=== PATIENT | female | born 1980 | race Caucasian/White ===

== ENCOUNTER 2019-08-23 14:07 | Outpatient (CLI) | payer OTHER, SELFPAY ==
[2019-08-23 15:21] LABS: Thyroid Stimulating Hormone 0.893 uIU/mL (0.465-4.680)
[2019-08-23 15:48] LABS: Free T4 Free Thyroxine 0.89 ng/mL (0.78-2.19)
== END 2019-08-23 14:08 | disposition home or self-care (01) ==
PROVIDERS: PCP Family Medicine; Visit Provider Obstetrics & Gynecology Gynecology
DX: E03.9 Hypothyroidism, unspecified (principal)
CPT/HCPCS: 36415; 84439; 84443

== ENCOUNTER 2019-12-26 11:14 | Outpatient (CLI) | payer OTHER, SELFPAY ==
[2019-12-26 12:50] LABS: Vitamin D 25 Hydroxy 59.6 ng/mL
== END 2019-12-26 11:15 | disposition home or self-care (01) ==
LOC: ANHLAB 11:16
PROVIDERS: PCP Family Medicine; Visit Provider Nurse Practitioner
DX: E07.9 Disorder of thyroid, unspecified (principal)
CPT/HCPCS: 36415; 82306; 84439; 84443

== ENCOUNTER 2020-02-06 15:00 | Outpatient (CLI) | payer OTHER, SELFPAY ==
--- NOTE | ~2020-02-06 | MM_ITS ---
EXAMINATION: MM screening alfredo BI w christopher HISTORY: Screening TECHNIQUE: Craniocaudal and mediolateral oblique 3-D tomosynthesis images were obtained and synthetic 2-D images were generated. CAD analysis was submitted and interpreted. COMPARISON: No prior mammogram is available for comparison at this institution. BREAST PARENCHYMAL COMPOSITION: The breasts are heterogeneously dense, which may obscure small masses . FINDINGS: There are asymmetries centered in the upper inner quadrant of the left breast. There is no mammographic evidence for malignancy in the right breast. IMPRESSION: 1. Left breast asymmetries. 2. Additional mammographic views and possible breast ultrasound are recommended. BI-RADS Category 0: Incomplete: Needs additional imaging evaluation. Reviewed, dictated and finalized at location A. IMPRESSION: 1. Left breast asymmetries. 2. Additional mammographic views and possible breast ultrasound are recommended . BI-RADS Category 0: Incomplete: Needs additional imaging evaluation.
== END 2020-02-06 15:01 | disposition home or self-care (01) ==
PROVIDERS: PCP Family Medicine; Visit Provider Nurse Practitioner
DX: Z12.31 Encounter for screening mammogram for malignant neoplasm of breast (principal); R92.8 Other abnormal and inconclusive findings on diagnostic imaging of breast
CPT/HCPCS: 77063; 77067

== ENCOUNTER 2020-02-14 03:32 | Outpatient (CLI) | payer OTHER, SELFPAY ==
[2020-02-14 17:45] LABS: SARS-CoV-2 RNA PCR Negative
== END 2020-02-14 03:33 | disposition home or self-care (01) ==
LOC: ANHCOVIDDT 03:32
PROVIDERS: PCP Family Medicine; Visit Provider Obstetrics & Gynecology Gynecology
DX: Z01.812 Encounter for preprocedural laboratory examination (principal); Z20.828 Contact with and (suspected) exposure to other viral communicable diseases
CPT/HCPCS: 87635; C9803; U0003

== ENCOUNTER 2020-02-17 01:17 | Day surgery (SDC) | payer OTHER, SELFPAY ==
[2020-02-05 15:34] VITALS: BMI 27.3
--- NOTE | 2020-02-17 08:03 | PM.HPGS ---
History of Present Illness History of Present Illness Consent: Risks, benefits, and alternatives have been discussed and questions answered. Patient agrees to proceed with procedure. Chief complaint: Menorrhagia Narrative: Beronica Linn is a 40 year old female with menorrhagia. Cycles are long, erratic, and heavy. Patient is s/p endometial ablation and myomectomy 2018 with intial good response. Reviewed need for endometrial assessment with patient. Risks of infection, bleeding, perforation, and inability to enter cavity due to prior ablation discussed. Patient given cytotec prior to proceedure. Agrees to proceed. [facility]LY [facility] Past Medical History Medical History (Updated 02/17/20 @ 08:08 by Trixie Jacobson MD) Anemia MTHFR (methylene THF reductase) deficiency and homocystinuria (normal spontaneous vaginal delivery) x 2 Spontaneous x 4 Thyroid disease Surgical History Surgical History (Updated 02/17/20 @ 08:08 by Trixie Jacobson MD) H/O tubal ligation History of appendectomy History of foot surgery History of gynecologic surgery s/p hysteroscopy, myomectomy, and endometrial ablation 2018 Family History Family History Mother Lung cancer Grandparent Lung cancer Paternal Alcoholism Paternal Cerebrovascular accident Paternal and Maternal Hypertension Maternal Heart disease Maternal Father Diabetes mellitus Sibling Diabetes mellitus Hypertension Thyroid disease Social History Social History Smoking status: Never smoker Alcohol intake: current Substance use: never Substance use type: does not use Additional living arrangements comments: spouse, daughter, and son Additional occupation/education comments: [employer] Gender identity (if verbalized by the patient): Female Spiritual care concerns: No Agree to blood products: Yes Meds Home Medications and Allergies Home Medications Medication Instructions Recorded Confirmed Type cholecalciferol (vitamin D3) 50 50 mcg PO 2XW 04/09/19 02/05/20 History mcg (2,000 unit) capsule multivitamin 1 tablet PO DAILY 04/09/19 02/05/20 History omeprazole 20 mg capsule,delayed 20 mg PO DAILY 04/09/19 02/05/20 History release ibuprofen 600 mg PO Q6H PRN 02/05/20 02/05/20 History Allergies Allergy/AdvReac Type Severity Reaction Status Date / Time amoxicillin Allergy Unknown RASH Verified 02/05/20 15:34 Exam Const: General: healthy appearing and alert Orientation/consciousness: patient oriented x3 Resp: Effort & Inspection: normal respiratory effort Auscultation: clear to auscultation bilaterally Cardio: Rate: regular rate Rhythm: regular rhythm GI: GI Palp: Yes Soft to palpation, No Tenderness to palpation present (GI) and No Palpable mass present : External Female Exam: normal external appearance Speculum Exam - Vagina: normal appearance of the vagina and normal vaginal discharge Speculum Exam - Cervix: normal appearance of the cervix Bimanual exam- vagina & uterus: uterine size normal and consistency normal Bimanual Exam- Adnexa, other: normal adnexae and No adnexal tenderness Neuro: General: patient oriented x3 Assessment and Plan Assessment and plan (1) Menorrhagia: Code(s): N92.0 - Excessive and frequent menstruation with regular cycle Status: Acute Assessment and Plan: plan to proceed with hysteroscopy with D&C
--- NOTE | 2020-02-17 08:09 | WPDHPUPDATE1 ---
History and Physical Update Update Date/Time: 02/17/20 08:09 History and Physical has been reviewed, including an updated exam of the patient. There are NO changes in the patient's condition. Risks, benefits, and alternatives have been discussed and questions answered. Patient agrees to proceed with procedure.
--- NOTE | 2020-02-17 08:09 | WPDANESEPPF ---
Anes - Initial Pre Proc Eval Procedure: Operation Date: 02/17/20 10:45 Proposed Procedures p Hysteroscopy, Dilation And Curettage - Trixie Jacobson MD Date/Time: 02/17/20 08:09 Surgeon: Trixie Jacobson MD Pre Op Diagnosis: Menorrhagia Patient Data Age: 40 Gender: F Height: 1.73 m Weight: 81.65 kg Allergies Allergy/AdvReac Type Severity Reaction Status Date / Time amoxicillin Allergy Unknown RASH Verified 02/17/20 09:44 Home Medications Medication Instructions Recorded Confirmed Type cholecalciferol (vitamin D3) 50 50 mcg PO 2XW 04/09/19 02/17/20 History mcg (2,000 unit) capsule multivitamin 1 tablet PO DAILY 04/09/19 02/17/20 History omeprazole 20 mg capsule,delayed 20 mg PO DAILY 04/09/19 02/17/20 History release ibuprofen 600 mg PO Q6H PRN 02/05/20 02/17/20 History Patient hx anesthesia problems: none Family hx anesthesia problems: none PMFSH Past Medical History Medical History (Updated 02/17/20 @ 08:08 by Trixie Jacobson MD) Anemia MTHFR (methylene THF reductase) deficiency and homocystinuria (normal spontaneous vaginal delivery) x 2 Spontaneous x 4 Thyroid disease Surgical History Surgical History (Updated 02/17/20 @ 08:08 by Trixie Jacobson MD) H/O tubal ligation History of appendectomy History of foot surgery History of gynecologic surgery s/p hysteroscopy, myomectomy, and endometrial ablation 2017 Family History Family History Mother Lung cancer Grandparent Lung cancer Paternal Alcoholism Paternal Cerebrovascular accident Paternal and Maternal Hypertension Maternal Heart disease Maternal Father Diabetes mellitus Sibling Diabetes mellitus Hypertension Thyroid disease Social History Social History Smoking status: Never smoker Alcohol intake: current Substance use: never Substance use type: does not use Additional living arrangements comments: spouse, daughter, and son Additional occupation/education comments: [employer] Gender identity (if verbalized by the patient): Female Spiritual care concerns: No Agree to blood products: Yes Anes - Eval Final PreProcedure Day of Procedure 02/17/20 08:09 Patient weight: overweight Heart: regular rate and rhythm Lungs: clear to auscultation and normal air movement Airway: Mallampati scale class 1 Neurological: alert and oriented Last oral intake: >/= 8 hours ASA classification: II Emergent: no Anesthetic plan: proceed Anesthesia type and monitoring: general GIVS and standard monitoring Informed Consent: The patient's anesthetic plan and its attendant risks and benefits were discussed with the patient/family/POA. Questions were solicited and answers provided to the satisfaction of the patient/family/POA.
[2020-02-17 09:00] VITALS: BP 138/73; PULSE 84; RESP 16; TEMP 37.1; O2SAT 99
[2020-02-17] MEDS: ACETAMINOPHEN 500 MG TABLET 1000 MG PO (09:36)
[2020-02-17] MEDS: LACTATED RINGERS 1,000 ML 30 ML IV CONT (09:36)
[2020-02-17] MEDS: KETOROLAC 30 MG/ML VIAL (*BKC) IV PUSH (10:47)
--- NOTE | 2020-02-17 10:56 | SUR.OPER ---
150ml ns in, 150ml ns out. aware
--- NOTE | 2020-02-17 10:58 | P.OP_ITS ---
Procedure Note - Detailed Date of procedure: 02/17/20 Pre-op diagnosis: Menorrhagia Post-op diagnosis: same Procedure performed: D&C hysteroscopy Description of procedure: The patient is taken to the operating room and placed under anesthesia in the dorsal lithotomy position. She has prepped and draped in the usual sterile fashion. The bivalve speculum was placed in the vagina and the cervix grasped with the tenaculum. The cervix is injected with 1% lidocaine and dilated with Hegars. The diagnostic hysteroscope was placed with stated findings. The medium sharp curette is used to curette the endometrium until a good uterine cry was noted in all areas. All instruments are removed. The patient is awakened from anesthesia and taken to recovery in stable condition. Sponge, instrument, and needle counts are correct per the OR staff. Anesthesia: MAC and local Surgeon: Trixie Jacobson MD Estimated blood loss (mL): 5 Drains: No Packing: No Pathology: yes (endometrial curettings) Complications: No immediate complications Condition: stable Disposition: PACU Findings: uterus 8 cm; grossly scarred endometrium consistent with prior ablat ion; no lesions; normal appearing tubal ostia
[2020-02-17 11:02] VITALS: BP 130/69; PULSE 73; RESP 16; O2SAT 96
[2020-02-17 11:32] VITALS: BP 135/63; PULSE 67; RESP 16
[2020-02-17 12:02] VITALS: BP 134/66; PULSE 68; RESP 16
== END 2020-02-17 12:10 | disposition home or self-care (01) ==
PROVIDERS: PCP Family Medicine; Visit Provider Obstetrics & Gynecology Gynecology
PROC: 0U5B8ZZ Destruction of Endometrium, Via Natural or Artificial Opening Endoscopic (ICD-10-PCS; CPT 58563; principal; 2020-02-17 10:45)
DX: N92.0 Excessive and frequent menstruation with regular cycle (principal); E72.12 Methylenetetrahydrofolate reductase deficiency; E72.11 Homocystinuria
CPT/HCPCS: 58558; 88305; A9270; J1100; J1885; J2250; J2405; J2704; J3010; J7030; J7120

== ENCOUNTER 2020-04-30 11:46 | Outpatient (CLI) | payer OTHER, SELFPAY ==
--- NOTE | ~2020-04-30 | MMUS_ITS ---
EXAMINATION: MM diagnostic mammo unilat LT, US breast LT limited HISTORY: Left breast mass on screening mammogram TECHNIQUE: Additional 3-D tomosynthesis images of the left breast were performed and synthetic 2-D im ages were generated. CAD analysis was submitted and interpreted. High resolution limited left breast ultrasound was performed. COMPARISON: 02/06/2020 BREAST PARENCHYMAL COMPOSITION: The breasts are heterogeneously dense, which may obscure small masses . FINDINGS: MAMMOGRAPHIC FINDINGS: There is an approximately 2.8 cm irregular, spiculated, high density mass with associated architectur al distortion the upper inner quadrant of the left breast. ULTRASOUND: A 2.1 x 1.0 cm irregular, parallel, hypoechoic mass with spiculated margins, posterior acoustic shado wing, and internal vascularity is present at the 11:00 location corresponding to the mammographic fin ding in question. IMPRESSION: 1. Suspicious left breast mass. 2. Ultrasound-guided biopsy is recommended. BI-RADS category 5, highly suggestive of malignancy. Reviewed, dictated and finalized at location A. [facility] IMPRESSION: 1. Suspicious left breast mass. 2. Ultrasound-guided biopsy is recommended. BI-RADS category 5, highly suggestive of malignancy.
== END 2020-04-30 11:47 | disposition home or self-care (01) ==
PROVIDERS: PCP Family Medicine; Visit Provider Obstetrics & Gynecology Gynecology
DX: R92.8 Other abnormal and inconclusive findings on diagnostic imaging of breast (principal)
CPT/HCPCS: 76642; 77065

== ENCOUNTER 2021-02-25 09:31 | Outpatient (CLI) | payer OTHER, SELFPAY ==
[2021-02-25 11:11] LABS: Free T4 Free Thyroxine 0.99 ng/mL (0.78-2.19); Vitamin D 25 Hydroxy 61.2 ng/mL
[2021-02-25 11:24] LABS: Thyroid Stimulating Hormone 0.886 uIU/mL (0.465-4.680)
== END 2021-02-25 09:32 | disposition home or self-care (01) ==
LOC: ANHLAB 09:34
PROVIDERS: Visit Provider Nurse Practitioner
DX: E07.9 Disorder of thyroid, unspecified (principal)
CPT/HCPCS: 36415; 82306; 84439; 84443

== ENCOUNTER 2021-08-12 09:03 | Outpatient (CLI) | payer OTHER, SELFPAY ==
[2021-08-12 10:04] LABS: Free T4 Free Thyroxine 0.98 ng/mL (0.78-2.19)
[2021-08-12 10:14] LABS: Thyroid Stimulating Hormone 0.961 uIU/mL (0.465-4.680)
== END 2021-08-12 09:04 | disposition home or self-care (01) ==
LOC: ANHLAB 09:10
PROVIDERS: Visit Provider Internal Medicine Endocrinology, Diabetes & Metabolism
DX: E04.1 Nontoxic single thyroid nodule (principal)
CPT/HCPCS: 36415; 84439; 84443

== ENCOUNTER → 2021-08-27 08:52 | Outpatient (CLI) | payer OTHER, SELFPAY ==
--- NOTE | ~2021-08-27 | US_ITS ---
EXAMINATION: US thyroid DATE: 08/27/2021 09:13 INDICATION: Nontoxic single thyroid nodule. TECHNIQUE: Multiple ultrasound images of the thyroid were obtained. COMPARISON: Ultrasound 11/15/2018, 05/02/13 FINDINGS: The right thyroid lobe measures 6.9 x 1.4 x 2.9 cm. The left thyroid lobe measures 6.8 x 1.8 x 2.7 c m. In the right thyroid lobe, there is a 7 mm mixed cystic and solid, hypoechoic, btnee-vsfa-kjyi no dule with lobulated margin without echogenic foci (TI-RADS TR4). In the right thyroid lobe, there is a 5 mm solid, hypoechoic, hzziy-bedn-sfng nodule with lobulated margin without echogenic foci (TR4). In the right thyroid lobe, there is a 9 mm mixed cystic and solid, hypoechoic, owljz-nhth-dgnq nodule with irregular margin and punctate echogenic foci (TR5), stable from 11/15/18. There are multiple sma ll nodules in the thyroid. IMPRESSION: 1. Small thyroid nodules. Thyroid ultrasound is recommended in one year. Reviewed, dictated and finalized at location A.
== END ==
PROVIDERS: PCP Internal Medicine Endocrinology, Diabetes & Metabolism; Visit Provider Internal Medicine Endocrinology, Diabetes & Metabolism
DX: E04.2 Nontoxic multinodular goiter (principal)
CPT/HCPCS: 76536

== ENCOUNTER 2022-04-28 09:37 | Outpatient (CLI) | payer OTHER, SELFPAY ==
[2022-04-28 10:36] LABS: Free T4 Free Thyroxine 0.97 ng/mL (0.78-2.19); Vitamin D 25 Hydroxy 91.3 ng/mL
== END 2022-04-28 09:38 | disposition home or self-care (01) ==
LOC: ANHLAB 09:39
PROVIDERS: Nurse Practitioner; PCP Internal Medicine Endocrinology, Diabetes & Metabolism; Visit Provider Obstetrics & Gynecology Gynecology
DX: E55.9 Vitamin D deficiency, unspecified (principal); E07.9 Disorder of thyroid, unspecified
CPT/HCPCS: 36415; 82306; 84439; 84443

== ENCOUNTER 2022-11-17 17:27 | Outpatient (CLI) | payer OTHER, SELFPAY ==
[2022-11-17 18:50] LABS: Vitamin D 25 Hydroxy 80.2 ng/mL
== END 2022-11-17 17:28 | disposition home or self-care (01) ==
LOC: ANHLAB 17:29
PROVIDERS: PCP Internal Medicine Endocrinology, Diabetes & Metabolism; Visit Provider Obstetrics & Gynecology Gynecology
DX: E55.9 Vitamin D deficiency, unspecified (principal)
CPT/HCPCS: 36415; 82306

== ENCOUNTER 2023-06-03 11:39 | Outpatient (CLI) | payer OTHER, SELFPAY ==
[2023-06-03 12:28] LABS: Free T4 Free Thyroxine 0.92 ng/mL (0.78-2.19); Vitamin D 25 Hydroxy 58.5 ng/mL
[2023-06-03 13:09] LABS: Thyroid Stimulating Hormone 0.922 uIU/mL (0.465-4.680)
== END 2023-06-03 11:40 | disposition home or self-care (01) ==
LOC: ANHLAB 11:41
PROVIDERS: PCP Internal Medicine Endocrinology, Diabetes & Metabolism; Visit Provider Nurse Practitioner
DX: E07.9 Disorder of thyroid, unspecified (principal); E55.9 Vitamin D deficiency, unspecified
CPT/HCPCS: 36415; 82306; 84439; 84443

== ENCOUNTER 2023-07-22 09:25 | Emergency (ER) | payer OTHER, SELFPAY ==
[2023-07-22 09:55] VITALS: BP 153/92; PULSE 77; RESP 18; TEMP 37; O2SAT 100
--- NOTE | 2023-07-22 10:35 | ED.GENADULT ---
HPI - General Adult General Chief complaint: Upper Respiratory Infection Stated complaint: sorethroat,bodyache Time Seen by Provider: 07/22/23 10:35 Source: patient, RN notes reviewed and old records reviewed Mode of arrival: ambulatory Limitations: no limitations History of Present Illness HPI narrative: 43-year-old female presents to the [facility] with complaints of headache and sore throat for 5 days. States body aches started this morning. Denies fevers. Has multiple coworkers that have been sick. This morning has taken Excedrin and ibuprofen. Yesterday took some flu and cold medication Related Data Home Medications Medication Instructions Recorded Confirmed cholecalciferol (vitamin D3) 50 50 mcg PO 2XW 04/09/19 08/05/21 mcg (2,000 unit) capsule multivitamin 1 tablet PO DAILY 04/09/19 08/05/21 omeprazole 20 mg capsule,delayed 20 mg PO DAILY 04/09/19 08/05/21 release ibuprofen 600 mg tablet 600 mg PO Q6H PRN Pain 02/05/20 08/05/21 gabapentin 100 mg capsule 200 mg PO DAILY 08/05/21 08/05/21 iron buccal 08/05/21 08/05/21 Allergies Allergy/AdvReac Type Severity Reaction Status Date / Time amoxicillin Allergy Unknown RASH Verified 07/22/23 10:08 Review of Systems Review of Systems: All systems reviewed & are unremarkable except as noted in HPI and below Constitutional: Constitutional: Reports as per HPI, Reports body ache(s), Reports fatigue and Denies fever(s) Eyes: Eyes: Reports no additional eye complaints ENT: Reports as per HPI and Reports sore throat Cardiovascular: Cardiovascular: Reports no additional cardiovascular complaints, Denies chest pain and Denies dyspnea Respiratory: Respiratory: Reports no additional respiratory complaints, Denies chest congestion, Denies cough and Denies dyspnea Gastrointestinal: Gastrointestinal: Reports no additional gastrointestinal complaints, Denies abdominal pain, Denies nausea and Denies vomiting Musculoskeletal: Musculoskeletal: Reports no additional musculoskeletal complaints Integumentary/Breasts: Skin/Breast: Reports system reviewed and no additional complaints, except as docu Neurologic: Reports system reviewed and no additional complaints, except as documented Psychiatric: Psychiatric: Reports no additional psychiatric complaints Allergic/Immunologic: Allergic/Immunologic: Reports no additional allergic/immunologic complaints PMFSH Past Medical History Medical History Anemia MTHFR (methylene THF reductase) deficiency and homocystinuria (normal spontaneous vaginal delivery) x 2 Spontaneous x 4 Thyroid disease Surgical History Surgical History H/O tubal ligation History of appendectomy History of foot surgery History of gynecologic surgery s/p hysteroscopy, myomectomy, and endometrial ablation 2018 History of mastectomy, subtotal History of reconstruction of left breast History of reconstruction of right breast Family History Family History Mother Lung cancer Grandparent Lung cancer Paternal Alcoholism Paternal Cerebrovascular accident Paternal and Maternal Hypertension Maternal Heart disease Maternal Father Diabetes mellitus Sibling Diabetes mellitus Hypertension Thyroid disease Social History Social History Smoking status: Never smoker Alcohol intake: current Alcohol use details: occasional Substance use: never Substance use type: does not use Living arrangements: with family Additional living arrangements comments: spouse, daughter, and son Occupation/Education: occupation Additional occupation/education comments: [employer] Gender identity (if verbalized by the patient): Female Spiritual care concerns: No Agree to blood products:
== END 2023-07-22 10:50 | disposition home or self-care (01) ==
PROVIDERS: Emergency Provider Nurse Practitioner
DX: J10.1 Influenza due to other identified influenza virus with other respiratory manifestations (principal); Z20.822 Contact with and (suspected) exposure to COVID-19
CPT/HCPCS: 87081; 87426; 87804; 87880; 99213; G0463

== ENCOUNTER 2024-10-17 15:48 | Outpatient (CLI) | payer OTHER, SELFPAY ==
[2024-10-17 17:26] LABS: Vitamin D 25 Hydroxy 70.7 ng/mL
== END 2024-10-17 15:49 | disposition home or self-care (01) ==
PROVIDERS: PCP Family Medicine; Visit Provider Obstetrics & Gynecology Gynecology
DX: E55.9 Vitamin D deficiency, unspecified (principal)
CPT/HCPCS: 36415; 82306

== ENCOUNTER 2025-02-06 14:45 | Outpatient (CLI) | payer OTHER, SELFPAY ==
--- NOTE | ~2025-02-06 | DEXA_ITS ---
Bone Density Report Name: MARILYNN ADAMES Age: 45 Sex: Female Ethnicity: White Date of : 1980 Indication: postmenopausal; cancer; hysterectomy; Referring Provider: MELLISA, VANIA Study: Bone densitometry was performed. Exam Date: February 06, 2025 Accession number: [id number] Bone Density: Region BMD T-score Z-score Classification AP Spine(L1-L4) 1.080 0.3 0.7 Normal Femoral Neck (Left) 0.813 -0.3 0.1 Normal Total Hip (Left) 0.926 -0.1 0.2 Normal Femoral Neck (Right) 0.857 0.1 0.5 Normal Total Hip (Right) 0.968 0.2 0.5 Normal Total Hip Mean 0.947 0.1 0.4 Normal World Health Organization criteria for BMD impression classify patients as: Normal (T-score at or above -1.0), Osteopenia (T-score between -1.0 and -2.5), or Osteoporosis (T-score at or below -2.5). 10-year Fracture Risk: FRAX not reported because: All T-scores for Spine Total, Hip Total, Femoral Neck at or above -1.0 Clinical Information Provided by Patient: Has used the following medications: Vitamin D, Calcium Has the following medical conditions: Cancer, Hysterectomy, breast cancer Patient maximum height was 68 Menopause Age: 44 Drinks caffeinated beverages Onset of menses at age 13 Number of children 2 Impression: The patient has normal bone mass. Discussion: BONE DENSITY IS ABOVE THE MINIMUM DESIRABLE LEVEL AT ALL SKELETAL SITES TESTED. This patient?s bone mineral density is above the minimum desirable level (T-score -1.0 or better) at all sites measured. The patient should follow a healthful lifestyle (good nutrition with adequate calcium and vitamin D, and appropriate weight-bearing exercise). Follow-Up: Consider repeating this study in 5 years or sooner if there is some new clinical indication. Reported by: VALERI on 02/06/2025 3:04:00 PM. Reviewed, dictated and finalized at location A.
== END 2025-02-06 14:46 | disposition home or self-care (01) ==
LOC: MICIMG 14:46
PROVIDERS: PCP Family Medicine
DX: Z78.0 Asymptomatic menopausal state (principal); Z13.820 Encounter for screening for osteoporosis
CPT/HCPCS: 77080

== ENCOUNTER 2025-04-04 02:15 | Day surgery (SDC) | payer OTHER, SELFPAY ==
--- OUTSIDE RECORDS SUMMARY | 2023-10-05 08:00 | XMS_ITS ---
Author Organization [facility] Address [address] [place] [address] Care Team Providers Care Property Custodian Name Role Phone Jenny, Amanda Unavailable [phone] Encounters Encounter Location Date Provider Diagnosis [facility] [address] [place] [address] 10/05/2023 Amanda Alvarado Plan Of Treatment No Information Progress Notes * Esa ADAMESOB: 0 (45 yo F)Acc No.[id number]:10/05/2023 Patient: Beronica PEPPER Provider: Marimar Alvarado MD :1980 A ge:43 Y S ex:Female Date:10/05/2023 Address:[address] [place] [address], [address] [place], [place] [id number] Subjective: * Chief Complaints: * * Medical History: Objective: * Vitals: Assessment: Plan: * Treatment: * Billing Information: * Visit Code: * Procedure Codes: * Electronic signature of Ashley Alvarado MD on 04/04/2025 at 02:18 AM PRINT BINDING AND FINISHING WORKER Sign off status: Pending * Provider: Marimar Alvarado MD Date: 0 10/05/2023 Generated for Andrési ng/Faivyg/eTransmitting on: 1 06/05/2024 02:18 AM PRINT BINDING AND FINISHING WORKER
--- OUTSIDE RECORDS SUMMARY | 2023-10-19 05:15 | XMS_ITS ---
Author Organization [facility] Address [address] [place] [address] Care Team Providers Care Stunt Person Name Role Phone Jenny, Amanda Unavailable [phone] Encounters Encounter Location Date Provider Diagnosis [facility] [address] [place] [address] 10/19/2023 Amanda Alvarado Plan Of Treatment No Information Progress Notes * Esa ADAMESOB: 0 (45 yo F)Acc No.[id number]:10/19/2023 Progress Notes Patient: Beronica PEPPER Provider: Marimar Alvarado MD :1980 A ge:43 Y S ex:Female Date:10/19/2023 Address:[address] [place] [address], [address] [place], [place] [id number] Subjective: * Chief Complaints: * * Medical History: Objective: * Vitals: Assessment: Plan: * Treatment: * Billing Information: * Visit Code: * Procedure Codes: * Electronic signature of Ashley Alvarado MD on 04/04/2025 at 02:18 AM REGIONAL CONTROLLER Sign off status: Pending * Provider: Marimar Alvarado MD Date: 0 10/19/2023 Generated for Andrési ng/Faivyg/eTransmitting on: 1 06/05/2024 02:18 AM REGIONAL CONTROLLER
[2025-03-13 12:21] VITALS: BMI 29.7
--- OUTSIDE RECORDS SUMMARY | 2025-04-03 11:20 | XMS_ITS | Encounter Summary ---
Author Organization [facility] Healthcare Address [address] [place] [address] Care Team Providers Care Rivet Hammer Machine Operator Name Role Phone Margaret Christianson Primary Care Provider [phone] Deny Lopez DRY PLASTERER HELPER Unavailable Amanda Alvarado MD Unavailable [phone] Nahomy Funez PhD Unavailable [phone] Reason for Referral * Cardiology (Routine) - Pending Review Specialty Diagnoses / Procedures Referred By Contac t Referred To Contact Diagnoses Pre-op testing Procedures ECG 12 lead ECG 12 lead Clint Schofield MD [address] [facility] [address] [address] Phone: tel: fax: [address] [address] Referral ID Status Reason Start Date Expiration Date V isits Requested Visits Authorized [id number] Pending Review 04/02/2025 05/02/2026 1 1 UM BOTTLE ASSEMBLER Encounter Details Date Type Department Care Team ([facility] st Contact Info) Description 04/03/2025 11:20 AM VACUUM BOTTLE ASSEMBLER Pre-Admission Testing [facility] Pre Admit Testing [address] [place], [place] [id number] Pre-op testing Social History Tobacco Use Types Packs/Day Years Used Date Smoking Tobacco: Never Smokeless Tobacco: Never Alcohol Use Standard Drinks/Week Comments Yes 0 (1 standard drink = 0.6 oz pur e alcohol) socially PHQ-2 Answer Date Recorded PHQ-2 Total Score (If total score is 3 or more points, staff should administer the PHQ-9) 0 12/19/2024 PHQ-9 Answer Date Recorded PHQ-9 Total Score 4 12/19/2024 AUDIT-C Answer Date Recorded Q1: How often do you have a drink containing alc ohol? Monthly or less 04/01/2025 Q2: How many drinks containi ng alcohol do you have on a typical day when you are drinking? 1 or 2 04/01/2025 Q3: How often do you have si x or more drinks on one occasion? Never 04/01/2025 Comments No Sex and Gender Information Value Date Recorded Sex Assigned at Not on file Legal Sex Female 1:25 PM VACUUM BOTTLE ASSEMBLER Gender Identity Not on file Sexual Orientation Not on file documented as of this encounter Last Filed Vital Signs Vital Sign Reading Time Taken Comments Blood Pressure 134/70 04/03/2025 11:22 AM VACUUM BOTTLE ASSEMBLER Pulse 68 04/03/2025 11:22 AM VACUUM BOTTLE ASSEMBLER Temperature 36.4 C (97.5 F) 04/03/2025 11:22 AM VACUUM BOTTLE ASSEMBLER Respiratory Rate 20 04/03/2025 11:22 AM VACUUM BOTTLE ASSEMBLER Oxygen Saturation 99% 04/03/2025 11:22 AM VACUUM BOTTLE ASSEMBLER Inhaled Oxygen Concentration - - Weight 88.5 kg (195 lb) 04/03/2025 11:22 AM VACUUM BOTTLE ASSEMBLER Height 172.7 cm (5' 8) 04/03/2025 11:22 AM VACUUM BOTTLE ASSEMBLER Body Mass Index 29.65 04/03/2025 11:22 AM VACUUM BOTTLE ASSEMBLER documented in this encounter Functional Status documented as of this encounter Miscellaneous Notes * Pre-Procedure Instructions - Rimma Dobson RN - 04/03/2025 11:20 AM VACUUM BOTTLE ASSEMBLER Images from the original note were not included. [address] [address] Procedure Date: 04/10/2025 Procedure: [facility] PAT LAB ONLY VISIT * Clint Holcomb - Primary Surgery Reminder Checklist: Please arrive to [facility] for scheduled surgeryon 04/10/[address] Holcomb's office. Pre testing: 04/03/25 at 11:20 am Please park in the first parking lot on the LEFT. Enter through the Main Entrance and check in at [facility] (to the left of the information desk). ONE - TWO WEEKS BEFORE YOUR PROCEDURE You may take TYLENOL (ACETAMINOPHEN) as needed for pain. PLEASE FOLLOW YOUR SURGEON'S GUIDELINES REGARDING IBUPROFEN, ALEVE, MULTIVITAMINS, HERBAL SUPPLEMENTS, FISH OIL AND VITAMIN E. YOU MAY BE REQUIRED TO HOLD THESE FOR ONE WEEK PRIOR OR SOON POSSIBLE. EVENING BEFORE YOUR PROCEDURE Shower with Antibacterial soap followed by Hibiclens soap the evening before your surgery. After showering, do not apply any lotions, colognes, oils, deodorant, powder, or make-up Antibacterial Soap Examples: Dial or Safeguard. Hibiclens soap may be purchased at any store or pharmacy that carries soap. Look in the pharmacy/wound care section. If you would like to come to [facility] we can give you a bottle forFREE. Hours: Monday - Monday 8 AM - 4:30PM. Go to the main entrance and ask the front office clerk for Hibiclens Soap. If you go to [facility], park underneath Entrance A drive thru and call [phone] and ask for the surgery soap. We will bring it out to your car. Hibiclens, trusted by hospitals for over 40 years as a pre-operative skin wash, can help reduce therisk of surgical site infections (SSIs) caused by germs that live on the skin. DO NOT eat food or drink any liquids after midnight (this includes gum, mints, hard candy, and chewable antacids). MORNING OF YOUR PROCEDURE [place] your teeth morning of procedure. Use mouth wash if available. Do not swallow any liquids whencleansing your mouth. Shower with Antibacterial soap followed by Hibiclens soap. After showering, do not apply any hair products, lotions, colognes, oils, deodorant, powder, or make-up. Expect to remove wigs, dentures/partials, contact lenses, piercings, hearing aids, and prostheses before surgery. Do not wear jewelry to the hospital on the day of surgery. Bring glasses and hearing aids (with cases for both), inhalers, and CPAP/BiPAP machine day of surgery. If you will be admitted to the hospital after surgery, feel free to bring a toiletry bag. Medication Instructions: Morning of surgery medications should be taken with small sip of clear water. Pre-Surgery Instructions Medication Instructions calcium/D3/zinc/copper/levon (CITRACAL-D3 MAXIMUM PLUS ORAL) Stop taking 7 days prior to surgery cetirizine (ZyrTEC) 10 mg capsule Take as prescribed esomeprazole DR (NexIUM 24HR) 20 mg capsule Take morning of surgery gabapentin (NEURONTIN) 100 mg capsule Take as prescribed ibuprofen 200 mg tab/cap Stop taking 7 days prior to surgery Imvexxy Maintenance Pack 10 mcg insert vaginal insert Take as prescribed lisinopriL (PRINIVIL,ZESTRIL) 2.5 mg tablet Take as prescribed multivitamin (MULTI-DAY ORAL) Stop taking 7 days prior to surgery nystatin-triamcinolone ointment Take as prescribed venlafaxine XR (EFFEXOR-XR) 75 mg 24 hr capsule Take morning of surgery vitamin B complex (B COMPLEX 1 ORAL) Stop taking 7 days prior to surgery Vitamin D2 1,250 mcg (50,000 unit) capsule Take as prescribed VISITOR POLICY: Patients in outpatient/surgical settings may have 2 dedicated visitors; must be over the age of 14. The Coffee shop has limited choices. Please bring snacks and something to drink on day of surgery. GENERAL INSTRUCTIONS: Please call us with any new prescriptions so that we can give you instructions. DO NOT drink alcohol, smoke cigarettes/vapes/e-cigarettes during the 12 hours prior to your surgery. DO NOT smoke marijuana or take marijuana edibles for minimum 3 days, ideally 2 weeks prior to your surgery if smoking. DO NOT take illicit/illegal drugs of any kind for 7 days prior to surgery. Arrange for a friend/family member or official medical transportation to pick you up from the hospital and drive you home. You will not be allowed to drive yourself home. Non-medical transport services (buses, taxis, or a [employer] company such as [employer] or [employer] etc.) are NOT allowed. A responsible adult must be with you for 24 hours after your procedure. If you are unable to make arrangements for transportation and have a responsible adult with you for 24 hours after your procedure, your procedure will need to be rescheduled. Call your surgeon if you develop a rash, fever, cold, Urinary Tract Infection, or any other signs/symptoms of infection prior to surgery. Your surgery may need to be postponed. MORNING OF SURGERY PLEASE BRING: Photo ID and Insurance card. Any questions/concerns, please call the Admission Testing Center at [phone]. Morning of surgery question/concerns, please call Outpatient Surgery at [phone]. Thank You for choosing [facility]'s Surgery department! UM BOTTLE ASSEMBLER documented in this encounter Plan of Treatment Upcoming Encounters Date Type Department Care Team (Latest Contact Info) Description 04/10/2025 8:30 AM VACUUM BOTTLE ASSEMBLER Hospital Encounter [facility] OR [address] [place] [id number] Clint Holcomb MD [address] [place] [address] DR NICOLAS [address] [place] [id number] 04/10/2025 8:30 AM VACUUM BOTTLE ASSEMBLER Anesthesia Event [facility] [place] [address] [place] [id number] Pranav Dickson MD [address] [place] [address] [place] [address] 04/10/2025 8:30 AM VACUUM BOTTLE ASSEMBLER - 04/10/2025 9:00 AM VACUUM BOTTLE ASSEMBLER Surgery [facility] OR [address] [place] [phone] Clint Holcomb MD [address] [place] [address] DR NICOLAS [address] [place] [address] [address] BILATERAL CARPAL TUNNEL RELEASES AND RIGHT TENNIS ELBOW INJECTION Scheduled Procedures Name Priority Associated Diagnoses Date/Ti me RELEASE CARPAL TUNNEL Carpal tunnel syndrome on right Carpal tunnel syndrome on left 04/10/2025 8:30 AM VACUUM BOTTLE ASSEMBLER documented as of this encounter Procedures Procedure Name Priority Date/Time Associated Diagnosis Comments ECG 12-LEAD Routine 04/03/2025 11:30 AM VACUUM BOTTLE ASSEMBLER Pre-op testing EGFR Routine 04/03/2025 11:25 AM VACUUM BOTTLE ASSEMBLER Pre-op testing BASIC METABOLIC PANEL Routine 04/03/2025 11:25 AM VACUUM BOTTLE ASSEMBLER Pre-op testing documented in this encounter Results * ECG 12 lead (04/03/2025 11:30 AM VACUUM BOTTLE ASSEMBLER) Pathologist [facility] Ventricular Rate EKG/Min 67 BPM [facility] Atrial Rate 67 BPM [facility] AR-Interval (MSEC) 172 ms [facility] QRS-Interval (MSEC) 78 ms [facility] QT-Interval (MSEC) 416 ms [facility] QTc 439 ms [facility] P [place] 33 degrees [facility] R [place] 21 degrees [facility] T [place] 21 degrees [facility] Diagnosis Normal sinus rhythm Normal ECG No previous ECGs available Confirmed by SULTAN HERRERA M.D. ([id number]) on 04/03/2025 1:02:10 PM [facility] 04/03/2025 11:3 0 AM VACUUM BOTTLE ASSEMBLER 04/03/2025 1:02 PM VACUUM BOTTLE ASSEMBLER us Clint Schofield MD ECG ORDERABLES Medina chow Result [facility] * eGFR (04/03/2025 11:25 AM VACUUM BOTTLE ASSEMBLER) Pathologist [facility] eGFR >90 >=60 mL/min/1. 73 m2 Comment: Interpretive Data Reference Interval Normal >/= 90 mL/min/1.73m2 Mildly decreased* 60 - 89 mL/min/1.73m2 Mildly to moderately decreased 45 - 59 mL/min/1.73m2 Moderately to severely decreased 30 - 44 mL/min/1.73m2 Severely decreased 15 - 29 mL/min/1.73m2 Kidney Failure < 15 mL/min/1.73m2 *Relative to young adult level Estimated glomerular filtration rate is determined by the 2020 CKD-EPI equation recommended by the National Kidney Foundation (A Unifying Approach to GFR Estimation: Recommendations of the NKF-ASK Task Force on Reassessing the Inclusion of Race in Diagnosing Kidney Disease, JASN 202). The CKD-EPI equation should not be used for patients with unstable renal function and has not been validated in children and those over 70. Current interpretive data was last reviewed 2021. Testing performed by: [address] [address] Blood 04/03/2025 11:2 5 AM VACUUM BOTTLE ASSEMBLER 04/03/2025 11:49 AM VACUUM BOTTLE ASSEMBLER us Clint Schofield MD LAB BLOOD ORDERABLES Final Result [facility] [address] [facility] Department [place] [address] * Basic metabolic panel (04/03/2025 11:25 AM VACUUM BOTTLE ASSEMBLER) Sodium 139 135 - 145 mmol/L Comment:Testing performed by : [address] [address] Potassium, pl 3.9 3.3 - 4.9 mmol/L [facility] Comment:Testing performed by : [address] [address] Chloride 103 97 - 110 mmol/L [facility] Comment:Testing performed by : [address] [address] CO2 27 22 - 32 mmol/L [facility] Comment:Testing performed by : [address] [address] Anion gap 9 2 - 15 mmol/L [facility] Comment:Testing performed by : [address] [address] BUN 18 6 - 25 mg/dL [facility] Comment:Testing performed by : [address] [address] Creatinine 0.70 0.60 - 1.10 mg/dL [facility] Comment:Testing performed by : [address] [address] Glucose 102 70 - 199 mg/dL [facility] Comment: Interpretive Data Fasting glucose >/= 126 mg/dl is diagnostic for diabetes. Fasting is defined as no caloric intake for at least 8 hours. Fasting glucose between 100 mg/dl to 125 mg/dl is diagnostic of prediabetes. In a patient with classic symptoms of hyperglycemia or hyperglycemic crisis, a random glucose >/= 200 mg/dl is diagnostic for diabetes. In the absence of unequivocal hyperglycemia, results should be confirmed by repeat testing. The classification and Diagnosis of Diabetes Diabetes Care 202; 46: S19-S40. Current interpretive data was last revised 2022. Testing performed by: [address] [address] Calcium 9.2 8.5 - 10.3 mg/dL [facility] Comment:Testing performed by : [address] [address] Blood 04/03/2025 11:2 5 AM VACUUM BOTTLE ASSEMBLER 04/03/2025 11:49 AM VACUUM BOTTLE ASSEMBLER Narrative [facility] - 04/03/2025 12:14 PM VACUUM BOTTLE ASSEMBLER PRE SURGICAL TESTING ONLY--* No surgery found *-* Cannot find OR case *-* Surgery not found *- us Clint Schofield MD LAB BLOOD ORDERABLES Final Result Performing Organization Address City/State/[facility] Co de Phone Number [facility] [address] [facility] Department [place] [address] documented in this encounter Visit Diagnoses Diagnosis Carpal tunnel syndrome on right Carpal tunnel syndrome Carpal tunnel syndrome on left Carpal tunnel syndrome Pre-op testing Unspecified pre-operative examination Carpal tunnel syndrome on right Carpal tunnel syndrome Carpal tunnel syndrome on left Carpal tunnel syndrome documented in this encounter Care Teams Rivet Hammer Machine Operator Relationship Specialty Start Date End Date Margaret Christianson DO [address] [facility] [place] [address] PCP - General Family Medicine 01/01/24 Deny Lopez NP [address] [facility] [address] [place] [address] Nurse Practitioner Oncology 01/04/24 Amanda Alvarado MD [address] [facility] [address] [place] [address] Referring Physician Pain Management 01/04/24 Nahomy Funez, PhD [address] [address] Referring Physician Obstetrics and Gynecology 01/04/24 documented as of this encounter
--- OUTSIDE RECORDS SUMMARY | 2025-04-04 02:18 | XMS_ITS | Encounter Summary ---
Author Organization [facility] Healthcare Address [address] [place] [address] Care Team Providers Care Analyst [employer] Bever[employer] Name Role Phone Trixie Jacobson MD Unavailable [phone] Trixie Jacobson MD Primary Care Provider + No, Physician Primary Care Provider [phone] Margaret Christianson DO Primary Care Provider [phone] Trixie Jacobson MD Unavailable [phone] Deny Lopez NP Unavailable Amanda Alvarado MD Unavailable [phone] Nahomy Funez PhD Unavailable [phone] Encounter Details Date Type Department Care Team (Late st Contact Info) Description 08/07/2020 Documentation [facility] [address] [place] [address] Noreen Valadez RN Social History Tobacco Use Types Packs/Day Years Used Date Smoking Tobacco: Never Smokeless Tobacco: Never Alcohol Use Standard Drinks/Week Comments Yes 0 (1 standard drink = 0.6 oz pur e alcohol) socially AUDIT-C Answer Date Recorded Q1: How often do you have a drink containing alc ohol? Monthly or less 08/06/2020 Q2: How many drinks containi ng alcohol do you have on a typical day when you are drinking? 1 or 2 08/06/2020 Q3: How often do you have si x or more drinks on one occasion? Never 08/06/2020 Comments No Sex and Gender Information Value Date Recorded Sex Assigned at Not on file Legal Sex Female 1:25 PM DIRECTOR OF KNOWLEDGE MANAGEMENT Gender Identity Not on file Sexual Orientation Not on file documented as of this encounter Functional Status * Question Answer Date of Assessment Author BP Location Right arm 08/07/2020 6:00 PM Coral Freeman RN BP Method Automatic 08/07/2020 6:00 PM Coral Freeman RN MAP (mmHg) 88 08/08/2020 9:10 AM RADHAT Katy Ingram RN * Knowles Fall Risk Question Answer Date of Assessment Author History of Falling 0 08/08/2020 7:00 AM RADHAT Katy Ingram RN Secondary Diagnosis 15 08/08/2020 7:00 AM Katy Wiley RN Ambulatory Aids 0 08/08/2020 7:00 AM RADHAT Katy Mccabe RN Intravenous Therapy/Heparin/Saline Lock 20 0 08/08/2020 7:00 AM Katy Childs RN Gait/Transferring 0 08/08/2020 7:00 AM RADHAT Katy Ingram RN Mental Status 0 08/08/2020 7:00 AM RADHAT Katy Ingram RN Knowles Fall Risk Score (Score >= 45 places fall precaution order) 35 08/08/2020 7:00 AM RADHAT Amanda Ingram RN * Hosea Scale Question Answer Date of Assessment Author Sensory Perceptions 4 08/08/2020 9:30 AM Katy Wiley RN Moisture 4 08/08/2020 9:30 AM RADHAT Katy Ingram RN Activity 4 08/08/2020 9:30 AM RADHAT Katy Ingram RN Mobility 4 08/08/2020 9:30 AM RADHAT Katy Ingram RN Nutrition 3 08/08/2020 9:30 AM RADHAT Katy Ingram RN Friction and Shear 3 08/08/2020 9:30 AM RADHAT Katy Ingram RN Hosea Scale Score 22 08/08/2020 9:30 AM RADHAT Katy Ingram RN * Fall Risk Interventions Question Answer Date of Assessment Author All Low Fall Interventions Applied Yes 08/08/2020 7:00 AM Katy Childs RN All Moderate Fall Interventions Applied No 08/08/2020 7:00 AM Katy Childs RN All Moderate Fall Risk Interventions EXCEPT: PT eval requested or obtained;OT eval requested or obtained 08/08/2020 7:00 AM Katy Childs RN All High Risk Interventions EXCEPT: Bed alarm;Chair alarm 08/07/2020 7:05 AM Kailey Handley RN Additional Interventions Applied Over-bed table on non-exit side;Exit bed on strong/preferred side 08/08/2020 7:00 AM Katy Childs RN Reason For Exception(s) steady gait 08/08/2020 7:00 A M Katy Childs RN * B.M.A.T. - Bedside Mobility Assessment Tool for Nurses Question Answer Date of Assessment Author Is patient able to participate in the BMAT? Yes 08/08/2020 7:00 AM Katy Childs RN BMAT Level Level 4 - Green 08/08/2020 7:00 AM Katy Morocho RN Level 3 Equipment Use non-powered stand aid 08/08/2020 7:00 AM Katy Childs RN * Pressure Injury Prevention Question Answer Date of Assessment Author Pressure Ulcer Prevention Interventions Keep skin clean and dry (Sensory Perception/Moisture ) 08/08/2020 9:30 AM Katy Childs RN * Integumentary Question Answer Date of Assessment Author Skin Color Appropriate for ethnicity 08/08/2020 9:30 AM Katy Childs RN Skin Condition/Temp Dry;Warm 08/08/2020 9 :30 AM Katy Childs RN Skin Integrity Surgical incision 08/08/2020 9:3 0 AM Katy Childs RN Skin Turgor Non-tenting 08/08/2020 9:30 AM Katy Childs RN Integumentary Additional Assessments Yes-Hosea 08/08/2020 9:30 AM Katy Childs RN Integumentary (WDL) X 08/08/2020 9 :30 AM Katy Childs RN Skin Location b/l breast 08/08/2020 9:30 AM Katy Childs RN * Wound (LDAs) Question Answer Date of Assessment Author Type of Wound (LDA) Surgical site 08/08/2020 9:30 AM Katy Hart RN * Hosea Scale Question Answer Date of Assessment Author Hosea Scale Used Hosea 08/07/2020 2:00 PM Sveta Cardenas RN * Question Answer Date of Assessment Author BP Location Right arm 08/07/2020 6:00 PM Coral Freeman RN BP Method Automatic 08/07/2020 6:00 PM Coral Freeman RN * Question Answer Date of Assessment Author Percent Meal Eaten (%) 75 08/08/2020 12:10 P M Katy Childs RN Percent Snack Eaten (%) 75 08/08/2020 12:10 PM Katy Childs RN * Question Answer Date of Assessment Author Bed In Lowest Position Yes 08/08/2020 7:00 AM Katy Childs RN Bed Wheels Locked Yes 08/08/2020 7:00 AM Katy Childs RN * Fall Risk Interventions Question Answer Date of Assessment Author All Low Fall Interventions Applied Yes 08/08/2020 7:00 AM Katy Childs RN All Moderate Fall Interventions Applied No 08/08/2020 7:00 AM Katy Childs RN All Moderate Fall Risk Interventions EXCEPT: PT eval requested or obtained;OT eval requested or obtained 08/08/2020 7:00 AM Katy Childs RN All High Risk Interventions EXCEPT: Bed alarm;Chair alarm 08/07/2020 7:05 AM Kailey Handley RN Additional Interventions Applied Over-bed table on non-exit side;Exit bed on strong/preferred side 08/08/2020 7:00 AM Katy Childs RN Reason For Exception(s) steady gait 08/08/2020 7:00 A M Katy Childs RN * Question Answer Date of Assessment Author Hygiene Bathed/showered with chlorhexidine gluconate (CHG) 08/07/2020 8:24 AM Kailey Handley RN * Nutrition Question Answer Date of Assessment Author Feeding Level of Assistance Able to feed self 08/09/19 7:00 AM RADHAT Katy Ingram RN documented as of this encounter Mental Status * Question Answer Entry Date Author Level of Consciousness Alert;Awake 9:30 AM RADHAT Katy Ingram RN Orientation Oriented X4 (person, place, time, situation) 08/08/2020 9:30 AM Katy Childs RN Neuro ([facility]) [facility] 08/08/2020 9:30 AM RADHAT Katy Ingram RN * Short Blessed Test Question Answer Entry Date Author What year is it now? 0 08/07/2020 8:26 AM RADHAT Cheyenne Huffman OT What month is it now? 0 08/07/2020 8:26 AM RADHAT Cheyenne Huffman, OT Without looking at the clock, tell me what time it is 0 08/07/2020 8:26 AM Cheyenne Vaughn, OT Count aloud backwards from 20-1 0 08/07/2020 8:26 AM Cheyenne Vaughn, OT Say the months of the year backwards in reverse order 0 08/07/2020 8:26 AM Cheyenne Vaughn, OT Repeat the name and address I asked you to remember 0 08/07/2020 8:26 AM Cheyenne Vaughn OT Repeat this name and address after me Malachi Schumacher [address] [place] [address] 08/07/2020 8:26 AM Cheyenne Vaughn, OT Short Blessed Total Score 0 08/07/2020 8:26 AM Cheyenne Vaughn, OT Short Blessed Comments WFL 8:26 AM CDT Cheyenne Huffman OT * Question Answer Entry Date Author Neuro (LETY) Delfina 08/07/2020 2:10 PM RADHAT Lenka Pastor RN documented in this encounter Miscellaneous Notes * Plan of Care - Noreen Valadez RN - 08/07/2020 12:17 PM CDT PT in the OR unable to interview. CM will follow postop for any discharge assistance. CM will continue to follow. Add 08/09/20 documented in this encounter Plan of Treatment Upcoming Encounters Date Type Department Care Team (Latest Contact Info) Description 04/10/2025 8:30 AM DIRECTOR OF KNOWLEDGE MANAGEMENT Hospital Encounter [facility] OR [address] [place] [id number] Clint Garnica MD [address] [place] [address] DR NICOLAS [address] [place] [phone] 04/10/2025 8:30 AM DIRECTOR OF KNOWLEDGE MANAGEMENT Anesthesia Event [facility] OR [address] [place] [address] Pranav Dickson MD [address] [place] [address] [place] [address] 04/10/2025 8:30 AM DIRECTOR OF KNOWLEDGE MANAGEMENT - 04/10/2025 9:00 AM DIRECTOR OF KNOWLEDGE MANAGEMENT Surgery [facility] OR [address] [place] [id number] Clint Garnica MD [address] [place] [address] DR NICOLAS [address] [place] [address] BILATERAL CARPAL TUNNEL RELEASES AND RIGHT TENNIS ELBOW INJECTION Scheduled Procedures Name Priority Associated Diagnoses Date/Ti me RELEASE CARPAL TUNNEL Carpal tunnel syndrome on right Carpal tunnel syndrome on left 04/10/2025 8:30 AM DIRECTOR OF KNOWLEDGE MANAGEMENT documented as of this encounter Visit Diagnoses Not on filedocumented in this encounter Care Teams Analyst Food And Beverage Relationship Specialty Start Date End Date Trixie Jacobson MD [address]22 [address] [place] [id number] PCP - General Gynecology 05/20/20 10/05/22 No, Physician PCP - General 10/06/22 12/31/23 Margaret Christianson DO [address] [facility] [address] [place] [address] PCP - General Family Medicine 01/01/24 Trixie Jacobson MD [address]22 [facility] [address] [place] [address] Referring Physician Gynecology 04/30/20 02/07/24 Trixie Jacobson MD 2022 [facility] [address] [place] [address] Referring Physician Gynecology 01/04/24 01/04/24 Deny Lopez NP [address] [address] Nurse Practitioner Oncology 01/04/24 Amanda Alvarado MD [address] [address] Referring Physician Pain Management 01/04/24 Nahomy Funez, PhD [address] [facility] [address] [place] [address] Referring Physician Obstetrics and Gynecology 01/04/24 documented as of this encounter
--- OUTSIDE RECORDS SUMMARY | 2025-04-04 02:18 | XMS_ITS ---
Author Organization [facility] Address [address] [place] [address] Care Team Providers Care Curator [employer] Name Role Phone Margaret Christianson Primary Care Provider [phone] Deny Lopez EVENT REPRESENTATIVE Unavailable Amanda Alvarado MD Unavailable [phone] Nahomy Funez PhD Unavailable [phone] Active Problems Problem Noted Date Diagnosed Date Carpal tunnel syndrome, bilateral 03/14/2025 Right carpal tunnel syndrome 03/14/2025 Left carpal tunnel syndrome 03/14/2025 Lateral epicondylitis of right elbow 03/14/2025 Carpal tunnel syndrome on right 03/14/2025 Carpal tunnel syndrome on left 03/14/2025 Prediabetes 12/19/2024 Bilateral hand numbness 12/19/2024 Dysphagia 02/15/2024 Assessment & Plan (02/15/2024 10:53 AM CDT): Patient reports chronic GERD controlled on PPI but with an alarm symptom of solid food dysphagia. I recommend an EGD as the next step in evaluation. She would like to confirm insurance coverage prior to scheduling. I have explained the technique, benefits, alternatives, and the risks to the patient, including bleeding, perforation, infection, missed lesions, as well as the adverse effects possible with sedation. The patient is aware and informed of these risks as well as char- procedural instructions and is willing to proceed. Anti reflux lifestyle modifications. Uterine leiomyoma 02/12/2024 Assessment & Plan (02/12/2024 9:58 AM CDT): Found on CT scan of abdomen and pelvis, also noted some enlarged bilateral adnexal cysts. Referred to gynecology for further evaluation and management. Abdominal pain 01/05/2024 Assessment & Plan (01/05/2024 10:56 AM CDT): Ordered CT scan of abdomen pelvis due to her history of left breast cancer, and current complaint of abdominal bloating and pain. Will follow. Abdominal bloating 01/05/2024 Assessment & Plan (01/05/2024 10:56 AM CDT): Ordered CT scan of abdomen pelvis due to her history of left breast cancer, and current complaint of abdominal bloating and pain. Will follow. 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 Continue Xulane Patch Class 1 obesity due to exces s calories with serious comorbidity and body mass index (BMI) of 30.0 to 30.9 in adult 01/04/2024 Primary hypertension 01/04/2024 Assessment & Plan (02/12/2024 9:56 AM CDT): Newly diagnosed, we will start lisinopril. Blood pressure goal is less than 140/90. Low-sodium diet recommended. Monitor blood pressures at home. Send in a copy of blood pressure log for 1 week. Assessment & Plan (01/05/2024 10:55 AM CDT): Monitor home blood pressure readings. Blood pressure goal is less than 140/90. Send blood pressure readings to our office, via [employer], on a weekly basis. Blood pressure goal is less than 140/90. Low-sodium diet recommended. Chronic constipation 01/04/2024 Assessment & Plan (02/15/2024 11:03 AM CDT): The patient has mild chronic constipation being managed well currently with miralax. With lack of alarm symptoms, we will plan for a colonoscopy at the age of 45 years as part of her average risk screening. She was advised to call the office if having progressive/persistent constipation with alarm symptoms moving forward and we will arrange for a colonoscopy sooner. We will plan for a colon purge with 1 gallon GoLytely (in case there is a component of overflow) and she will continue miralax. Stay well hydrated. Labs as ordered by PCP already, include thyroid function tests. Assessment & Plan (02/12/2024 9:56 AM CDT): Referred to Gastroenterology for further evaluation management. Consider using [id number] MiraLax and/or Colace as needed to help with constipation. Assessment & Plan (01/05/2024 10:56 AM CDT): Okay to take MiraLax on a daily basis if needed. Increase fiber in daily diet. Increase water intake. Female infertility 06/03/2021 Gastroesophageal reflux disease with esophagitis 06/03/2021 Hypothyroidism 06/03/2021 H/O low back pain 06/03/2021 Acquired absence of both breasts 02/24/2021 Malignant neoplasm of left female breast 021 Overview (08/07/2020): Added automatically from request for surgery [id number] Current Treatment and Therapy Plans No current plan information found. Past Treatment and Therapy Plans No past plan information found. Lifetime Dose Tracking * Chemical Lifetime Dose Automatic Entry Manual Entr y DLP 1,226 mGycm 1,226 mGycm 0 mGycm Resolved Problems Problem Noted Date Diagnosed Date Resolved Date Recurrent loss wit hout current 06/03/2021 02/08/2024 History of left breast cancer 09/04/2020 02/08/2024 Overview (09/04/2020): Added automatically from request for surgery [id number] Breast mass 05/28/2020 02/08/2024
--- OUTSIDE RECORDS SUMMARY | 2025-04-04 02:18 | XMS_ITS | Clinical Summary ---
Author Organization [facility] Address [address] [place] [address] Care Team Providers Care Commercial Property Manager Name Role Phone Margaret Christianson Primary Care Provider [phone] Deny Lopez NP Unavailable Amanda Alvarado MD Unavailable Nahomy Funez PhD Unavailable [phone] Allergies Active Allergy Reactions Criticality Noted Date Comments Penicillins Rash Medium 05/20/2020 Medications multivitamin (MULTI-DAY ORAL)Indications :supplement Take 1 tablet by mouth as needed Active UNABLE TO FIND Take 1 each by mouth as needed OTC supplement for Restless Leg 3-4 times a week Active nystatin-triamci nolone ointment Use to vulvar skin 1-2 times a week. 01/29/[address] (NexIUM 24HR) 20 mg capsule Take 1 capsule (20 mg total) by mouth daily before breakfast Active cetirizine (ZyrTEC) 10 mg capsule Take 10 mg by mouth daily Active lisinopriL (PRINIVIL,ZESTRI L) 2.5 mg tabletIndication s:Primary hypertension Take 1 tablet (2.5 mg total) by mouth daily 90 tablet 3 05/23/19 25 026 Active gabapentin (NEURONTIN) 100 mg capsuleIndicatio ns:Vasomotor symptoms due to menopause Take 2 capsules (200 mg total) by mouth 2 (two) times a day 360 capsule 3 08/23/19 25 026 Active Additional Information Patient taking differently: 300 mgoralDaily, Reported on 04/01/2025 Vitamin D2 1,250 mcg (50,000 unit) capsuleIndicatio ns:Vitamin D Deficiency Take 1 capsule (50,000 Units total) by mouth once a week 12 capsule 3 08/23/19 25 026 Active miscellaneous medical supply misc 900 Doses daily Acti ve venlafaxine XR (EFFEXOR-XR) 75 mg 24 hr capsule Take 1 capsule (75 mg total) by mouth daily 01/18/20 25 Active vitamin B complex (B COMPLEX 1 ORAL) 07/24/19 25 Active Imvexxy Maintenance Pack 10 mcg insert vaginal insert 01/21/20 25 Active calcium/D3/zinc/ copper/levon (CITRACAL-D3 MAXIMUM PLUS ORAL) 06/23/19 25 Active ibuprofen 200 mg tab/cap Take 2 tablet/capsule (400 mg total) by mouth every 6 (six) hours as needed for pain Active estradioL (ESTRACE) 0.01 % (0.1 mg/gram) vaginal cream 06/14/19 25 025 Discontin ued(Patie nt Reported) PARoxetine (PAXIL) 10 mg tablet 025 Discontin ued(Thera py completed ) Active Problems Problem Noted Date Diagnosed Date [...] AM CDT): Prescribed and managed by her wildlife conservationist. Continue Xulane Patch Class 1 obesity due [...] blood pressure readings to our office, via iFlipd, on a weekly basis. Blood pressure goal [...] Gastroenterology for further evaluation management. Consider using [id number] MiraLax and/or Colace as needed to help [...] (08/07/2020): Added automatically from request for surgery [id number] Resolved Problems Problem Noted Date Diagnosed Date Resolved Date Recurrent loss wit hout current 06/03/2021 02/08/2024 History of left breast cancer 09/04/2020 02/08/2024 Overview (09/04/2020): Added automatically from request for surgery [id number] Breast mass 05/28/2020 02/08/2024 Encounters Date Type Department Care Team Description 04/03/2025 11:20 AM NEEDLE PROCESS FELT GOODS SUPERVISOR Pre-Admission Testing [facility] Pre Admit Testing [address] [place] [id number] Pre-op testing 04/02/2025 Orders Only [facility] Pre Admit Testing [address] [place] [address] Rimma Dobson RN Pre-op testing (Primary Dx) 03/28/2025 10:45 AM NEEDLE PROCESS FELT GOODS SUPERVISOR Office Visit [facility] Medicine Surgery [address] [facility] Floor [address] [place] [phone] Margaret Elias PA History of left breast cancer (Primary Dx); History of bilateral mastectomy 03/14/2025 7:30 AM NEEDLE PROCESS FELT GOODS SUPERVISOR Office Visit [facility] Hand Surgery [address] [facility] [address] [place] [phone] Clint Garnica MD Carpal tunnel syndrome, bilateral (Primary Dx); Right carpal tunnel syndrome; Left carpal tunnel syndrome; Lateral epicondylitis of right elbow 03/14/2025 7:21 AM NEEDLE PROCESS FELT GOODS SUPERVISOR - 03/14/2025 11:59 PM NEEDLE PROCESS FELT GOODS SUPERVISOR Hospital Encounter [facility] MOB 1 DIAG IMG [address] [place] [address] Carpal tunnel syndrome, bilateral Discharge Disposition: Discharge to home or self care 02/11/2025 Patient Message [facility] Family Medicine at [place] [address] [facility] [address] [place] [phone] Margaret Christianson DO Referral for an upper gi 01/31/2025 9:00 AM CDT Therapy [facility] OP Physical Therapy [address] [facility] [address] [place] [address] Bilateral hand numbness from Last 3 Months Immunizations Immunization Administration Dates Next Due Influenza, Unspecified 02/08/2024(Deferr ed: Patient Refused),01/22/2023(Deferred: Patient Refused) Tdap 02/08/2024 Surgical History Surgery Date Site/Laterality Comments DILATION AND CURETTAGE OF UTERUS 04/24/2000 - 04/23/2001 APPENDECTOMY 04/24/2007 - 04/23/2008 TUBAL LIGATION 04/24/2017 - 04/23/2018 BREAST BIOPSY 05/27/2020 Left BREAST BIOPSY 06/19/2020 Right FOOT SURGERY 04/24/2017 - 04/23/2018 Bilateral B tarsal tunnel and plantar fascia release MASTECTOMY 04/24/2020 - 04/23/2021 Bilateral reconstruction HYSTERECTOMY 06/05/2024 BLADDER REPAIR 06/05/2024 Medical History Medical History Date Comments Anemia Back pain Acid reflux Thyroid disorder Wears glasses PONV (postoperative nausea and vomiting) Motion sickness Family history of anesthesia complication Brother alin salcedo. Breast cancer (HCC) Left Hypothyroidism Fractures ~20 years prior Hallux Primary hypertension 01/04/2024 Family History Medical History Relation Name Comments Depression Brother 1 Valentín Grupo Learning disabilities Brother 1 Valentín Grupo Prostate cancer Brother 1 Valentín Grupo Learning disabilities Brother 2 Felipe Lombardo Diabetes Father Karon Randallnemo Brain cancer Father's Sister Ovarian cancer Father's Sister Bleeding Disorder Maternal Grandfather Karon america Clotting disorder Maternal Grandfather Karon america Hearing loss Maternal Grandfather Karon america Heart attack Maternal Grandfather Karon america Heart disease Maternal Grandfather Karon america Kidney disease Maternal Grandfather Karon america Stroke Maternal Grandfather Karon america Hypertension Maternal Grandmother Shavon america Cancer Mother Nargis Grupo Depression Mother Nargis Grupo Diabetes Mother Nargis Grupo Hypertension Mother Nargis Randallnemo Lung cancer Mother Nargis Randallnemo Prostate cancer Mother's Brother Breast cancer Mother's Sister Saliva CA Mother's Sister Alcohol abuse Paternal Grandfather Dadaseth Lombardo Cancer Paternal Grandfather Dada Lombardo Lung cancer Paternal Grandfather Dada Lombardo Clotting disorder Paternal Grandmother Delmy leung Memory loss Paternal Grandmother Delmy Lombardo Stroke Paternal Grandmother Delmy Lombardo Depression Sister 1 Angle Niccum Diabetes Sister 1 Angle Niccum Miscarriages / Stillbirths Sister 2 Sheila Francis Anesthesia problems Neg Hx Relation Name Status Comments Brother 1 Valentín Grupo Brother 2 Felipe Edvinorg Father Karon Randallhildag Alive Father's Sister Maternal Grandfather Karon america Maternal Grandmother Shavon america Mother Nargisange Lombardo Alive Mother's Brother Mother's Sister Paternal Grandfather Dada Lombardo Paternal Grandmother Delmy Lombardo Sister 1 Angle Niccum Sister 2 Sheila Francis Social History Tobacco Use Types Packs/Day Years Used Date Smoking Tobacco: Never Smokeless Tobacco: Never Tobacco Cessation:Counseling Given: Not Answered Alcohol Use Standard Drinks/Week Comments Yes 0 [...] on file Legal Sex Female 1:25 PM NEEDLE PROCESS FELT GOODS SUPERVISOR Gender Identity Not on file Sexual Orientation Not on file Obstetrics History Para Term AB IAB SAB Ectopic Multiple Livin g Live Births 6 2 4 4 Date Outcome GA Total Labor Labor/2nd/3rd Weight Sex Type Anes PTL Teresa A1 A5 Name Clin Para Para SAB SAB SAB SAB Last Filed Vital Signs Vital Sign Reading Time Taken Comments Blood Pressure 134/70 04/03/2025 11:22 AM NEEDLE PROCESS FELT GOODS SUPERVISOR Pulse 68 04/03/2025 11:22 AM NEEDLE PROCESS FELT GOODS SUPERVISOR Temperature 36.4 C (97.5 F) 04/03/2025 11:22 AM NEEDLE PROCESS FELT GOODS SUPERVISOR Respiratory Rate 20 04/03/2025 11:22 AM NEEDLE PROCESS FELT GOODS SUPERVISOR Oxygen Saturation 99% 04/03/2025 11:22 AM NEEDLE PROCESS FELT GOODS SUPERVISOR Inhaled Oxygen Concentration - - Weight 88.5 kg (195 lb) 04/03/2025 11:22 AM NEEDLE PROCESS FELT GOODS SUPERVISOR Height 172.7 cm (5' 8) 04/03/2025 11:22 AM NEEDLE PROCESS FELT GOODS SUPERVISOR Body Mass Index 29.65 04/03/2025 11:22 AM NEEDLE PROCESS FELT GOODS SUPERVISOR Plan of Treatment Upcoming Encounters Date Type Department Care Team (Latest Contact Info) Description 04/10/2025 8:30 AM NEEDLE PROCESS FELT GOODS SUPERVISOR Hospital Encounter [address] [address] Clint Garnica MD [address] [place] [address] 04/10/2025 8:30 AM NEEDLE PROCESS FELT GOODS SUPERVISOR Anesthesia Event [facility] OR [address] [place] [address] Pranav Dickson MD [address] [place] [address] 04/10/2025 8:30 AM NEEDLE PROCESS FELT GOODS SUPERVISOR - 04/10/2025 9:00 AM NEEDLE PROCESS FELT GOODS SUPERVISOR Surgery [facility] OR [address] [place] [address] Clint Garnica MD [facility] [facility] [place] [address] BILATERAL CARPAL TUNNEL RELEASES AND RIGHT TENNIS ELBOW INJECTION Scheduled Procedures Name Priority Associated Diagnoses Date/Ti me RELEASE CARPAL TUNNEL Carpal tunnel syndrome on right Carpal tunnel syndrome on left 04/10/2025 8:30 AM NEEDLE PROCESS FELT GOODS SUPERVISOR Health Maintenance Due Date Last Done Comments Colon Cancer Screening-Colonoscopy 1980 Influenza Vaccine (#1) 2024 Depression Screening 12/19/2025 12/19/2024, 12/19/2024, 01/04/2024 Regular Well Visit/Exam 18-64 12/19/2025 12/19/2024, 02/08/2024 DTaP/Tdap/Td Vaccine (2 - Td or Tdap) 02/07/2034 02/08/2024 Breast Cancer Screening-Mammogram Discontinued 10/18/2022 Hepatitis B Screening Completed 02/15/2024 Hepatitis C Screening Completed 02/15/2024 HPV Vaccines Discontinued Pneumococcal vaccine <65 Aged Out No longer eligible based on patient's age to complete this topic Varicella Vaccines Discontinued Medical Devices Implanted Type Area Trial Attorney Device Identifier Shelf Expiration Date Model / Serial / Lot Atmosferiq Inc [id number] Alloderm Select [id number] Allograft Regenerative Freeze Dried - [id number] Implanted:Qty: 1 on 08/06/2020 by Amanda Gallagher MD at [facility] Right: Breast [employer] 03/23/2022 [id number] / / [id number] [employer] [id number] Alloderm Select [id number] Allograft Regenerative Freeze Dried - [id number] Implanted:Qty: 1 on 08/06/2020 by Amanda Gallagher MD at [facility] Left: Breast [employer] 04/23/2022 [id number] / / [id number] Synovis [employer] [id number] [place] Microvascular 2.5mm Ring Pin Protective Cover Jaw Assembly Latex Free - [id number] Implanted:Qty: 1 on 11/26/2020 by Amanda Gallagher MD at [facility] Right: Breast [employer] [id number] 03/11/2025 [id number] / / [id number] Description:2.5 Retail Personal Banker [employer]is [employer] [id number] [place] Microvascular 2.5mm Ring Pin Protective Cover Jaw Assembly Latex Free - [id number] Implanted:Qty: 1 on 11/26/2020 by Amanda Gallagher MD at [facility] Right: Breast [employer] [id number] 04/14/2025 [id number] / / [id number] Description:2.5 Retail Personal Banker [employer] [id number] [place] Microvascular 2.5mm Ring Pin Protective Cover Jaw Assembly Latex Free - [id number] Implanted:Qty: 1 on 11/26/2020 by Amanda Gallagher MD at [facility] Left: Breast [employer] [id number] 04/21/2025 [id number] / / [id number] Description:2.5 refund clerk Explanted Type Area Trial Attorney Device Identifier Shelf Expiration Date Model / Serial / Lot Sientra Inc Allox2-Fh12se Allox2 [id number] Smooth Surface Integrate Port Breast P5.3-6cm Full - [id number] Implanted:Qty: 1 on 08/06/2020 by Amanda Gallagher MD at [facility] Explanted:Qty: 1 on 11/26/2020 by Jaime Beckwith MD at [facility] Breast [employer] [id number] E / / Sientra Inc Allox2-Fh12se Allox2 [id number] Smooth Surface Integrate Port Breast P5.3-6cm Full - [id number] - [id number] Implanted:Qty: 1 on 08/06/2020 by Amanda Gallagher MD at [facility] Explanted:Qty: 1 on 11/26/2020 at [facility] Breast S[employer] Inc 04/19/2028 [id number] E / [id number] / Procedures Procedure Name Priority Date/Time Associated Diagnosis Comments ECG 12-LEAD Routine 04/03/2025 11:30 AM NEEDLE PROCESS FELT GOODS SUPERVISOR Pre-op testing EGFR Routine 04/03/2025 11:25 AM NEEDLE PROCESS FELT GOODS SUPERVISOR Pre-op testing BASIC METABOLIC PANEL Routine 04/03/2025 11:25 AM NEEDLE PROCESS FELT GOODS SUPERVISOR Pre-op testing XR WRIST RIGHT 3 OR MORE VIEWS Schedule Routine, Read Routine (OP Routine) 03/14/2025 7:31 AM NEEDLE PROCESS FELT GOODS SUPERVISOR Carpal tunnel syndrome, bilateral XR WRIST LEFT 3 OR MORE VIEWS Schedule Routine, Read Routine (OP Routine) 03/14/2025 7:31 AM NEEDLE PROCESS FELT GOODS SUPERVISOR Carpal tunnel syndrome, bilateral HEPATITIS C ANTIBODY Routine 02/15/2024 11:07 AM CDT Need for hepatitis C screening test DIAGNOSTIC MAMMOGRAM BILATERAL W DANILO Schedule Routine, Read Routine (OP Routine) 10/18/2022 3:32 PM CDT Bilateral breast lump from Last 3 Months or Most Recently Relevant to Health Maintenance Results * ECG 12 lead (04/03/2025 11:30 AM NEEDLE PROCESS FELT GOODS SUPERVISOR) Ventricular Rate EKG/Min 67 BPM [facility] Atrial Rate [address] [facility] MI-Interval (MSEC) 172 ms [facility] QRS-Interval (MSEC) 78 ms [facility] QT-Interval (MSEC) 416 ms [facility] QTc 439 ms [facility] P [place] 33 degrees [facility] R [place] 21 degrees [facility] T [place] 21 degrees [facility] Diagnosis Normal sinus rhythm Normal ECG No previous ECGs available Confirmed by SULTAN HERRERA M.D. ([id number]) on 04/03/2025 1:02:10 PM [facility] 04/03/2025 11:3 0 AM NEEDLE PROCESS FELT GOODS SUPERVISOR 04/03/2025 1:02 PM NEEDLE PROCESS FELT GOODS SUPERVISOR us Clint Schofield MD ECG ORDERABLES [place] l Result [facility] * eGFR (04/03/2025 11:25 AM NEEDLE PROCESS FELT GOODS SUPERVISOR) eGFR >90 >=60 mL/min/1. 73 m2 Comment: [...] of Race in Diagnosing Kidney Disease, JASN 2020). The CKD-EPI equation should not be used for patients with unstable renal function and has not been validated in children and those over 70. Current interpretive data was last reviewed 2021. Testing performed by: [facility], [address] [place] [address], [place]., [address] Blood 04/03/2025 11:2 5 AM NEEDLE PROCESS FELT GOODS SUPERVISOR 04/03/2025 11:49 AM NEEDLE PROCESS FELT GOODS SUPERVISOR us Clint Schofield MD LAB BLOOD ORDERABLES Final Result [facility] [address] [facility] Department [place] [address] * Basic metabolic panel (04/03/2025 11:25 AM NEEDLE PROCESS FELT GOODS SUPERVISOR) Sodium 139 135 - 145 mmol/L Comment:Testing performed by : [address] [address] Potassium, pl 3.9 3.3 - 4.9 mmol/L [facility] Comment:Testing performed by : [address] [address] Chloride 103 97 - 110 mmol/L [facility] Comment:Testing performed by : [address] [address] CO2 27 22 - 32 mmol/L [facility] Comment:Testing performed by : [address] [address] Anion gap 9 2 - 15 mmol/L [facility] Comment:Testing performed by : [address] [address] BUN 18 6 - 25 mg/dL [facility] Comment:Testing performed by : [address] [address] Creatinine 0.70 0.60 - 1.10 mg/dL [facility] Comment:Testing performed by : [address] [address] Glucose 102 70 - 199 mg/dL [facility] [...] classification and Diagnosis of Diabetes Diabetes Care 2021; 46: S19-S40. Current interpretive data was last revised 2022. Testing performed by: [address] [address] Calcium 9.2 8.5 - 10.3 mg/dL [facility] Comment:Testing performed by : [facility], [address] [place] [address], [place]., [address] Blood 04/03/2025 11:2 5 AM NEEDLE PROCESS FELT GOODS SUPERVISOR 04/03/2025 11:49 AM NEEDLE PROCESS FELT GOODS SUPERVISOR Narrative [facility] - 04/03/2025 12:14 PM NEEDLE PROCESS FELT GOODS SUPERVISOR PRE SURGICAL TESTING ONLY--* No surgery found *-* Cannot find OR case *-* Surgery not found *- Clint Schofield MD LAB BLOOD ORDERABLES Final Result [facility] [address] [facility] Department [place] [address] * XR Wrist Right 3 or More Views (03/14/2025 7:31 AM NEEDLE PROCESS FELT GOODS SUPERVISOR) Anatomical Region Laterality Modality Upper Extremities, Wrist Right Compute d Radiography Impressions 03/19/2025 6:46 AM NEEDLE PROCESS FELT GOODS SUPERVISOR Normal right wrist x-rays Narrative 03/19/2025 6:46 AM NEEDLE PROCESS FELT GOODS SUPERVISOR EXAM DESCRIPTION: XR Wrist Right 3 or More Views REASON FOR STUDY: Carpal tunnel syndrome, bilateral COMPARISON: None FINDINGS: AP lateral and oblique x-rays right wrist show no obvious pathology Clint Garnica MD IMG XR PROCEDURES Final Result * XR Wrist Left 3 or More Views (03/14/2025 7:31 AM NEEDLE PROCESS FELT GOODS SUPERVISOR) Anatomical Region Laterality Modality Upper Extremities, Wrist Left Compute d Radiography Impressions 03/19/2025 6:47 AM NEEDLE PROCESS FELT GOODS SUPERVISOR Normal left wrist x-rays Narrative 03/19/2025 6:47 AM NEEDLE PROCESS FELT GOODS SUPERVISOR EXAM DESCRIPTION: XR Wrist Left 3 or More Views REASON FOR STUDY: Carpal tunnel syndrome, bilateral COMPARISON: None FINDINGS: AP lateral and oblique x-rays left wrist show no obvious pathology Clint Garnica MD IMG XR PROCEDURES Final Result * Hepatitis C antibody Blood (02/15/2024 11:07 AM CDT) Hep C Ab Nonreactive Nonreactive Comment: Antibodies to HCV not detected. Does NOT exclude the possibility of recent exposure to HCV. Current interpretive data was last revised on 21 Interpretive Data Nonreactive: Antibodies to HCV not detected. Does NOT exclude the possibility of recent exposure to HCV. Equivocal: Equivocal for HCV antibodies. Supplemental molecular testing will be automatically performed to determine infection status in accordance with current CDC screening recommendations. Reactive: Positive for HCV antibodies. This may represent current or past HCV infection. Supplemental molecular testing will be automatically performed to determine current infection status in accordance with current CDC screening recommendations. Interpretive data was last revised on 2019. Blood 02/15/2024 11:0 7 AM CDT 02/15/2024 11:37 AM CDT us Margaret Christianson DO LAB MICROBIOLOGY - GENERAL ORDERABLES Final Result [facility] [address] [facility] [place] [address] * Diagnostic Mammogram Bilateral W Danilo (10/18/2022 3:32 PM CDT) Anatomical Region Laterality Modality Breast Bilateral Mammography 10/18/2022 4:13 PM CDT Impressions 10/18/2022 4:58 PM CDT 1. Bilateral palpable upper chest wall abnormalities correspond to benign oil cysts. OVERALL FINAL ASSESSMENT: BI-RADS Category 2: Benign. RECOMMENDATION: Continued clinical follow-up is recommended. Dictated by: Chase Banuelos M.D. The radiology attending physician has personally reviewed this study, and had reviewed and/or edited this written report and agrees with it. Electronically signed by: Sarahi Irvin M.D. 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 COMPARISON: 06/19/2020 TECHNIQUE: Full field digital mammographic views of BOTH breasts were performed, including computer aided detection (CAD) and BILATERAL digital breast tomosynthesis (DBT). BREAST PARENCHYMAL COMPOSITION: N/A MAMMOGRAM FINDINGS: Underlying the palpable marker in the upper central LEFT chest wall is a well-defined oil cyst. Underlying the palpable marker in the upper central RIGHT chest wall is a well-defined oil cyst. ULTRASOUND FINDINGS: Targeted ultrasound of the palpable abnormality in the upper RIGHT chest wall at approximately 1:00 demonstrates an oil cyst. Targeted ultrasound of the palpable abnormality in the upper LEFT chest wall at approximately 11:00 demonstrates an additional oil cyst. Targeted physical exam by Dr. Banuelos demonstrates corresponding palpable masses consistent with oil cysts. 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 COMPARISON: 06/19/2020 TECHNIQUE: Full field digital mammographic views of BOTH breasts were performed, including computer aided detection (CAD) and BILATERAL digital breast tomosynthesis (DBT). BREAST PARENCHYMAL COMPOSITION: N/A MAMMOGRAM FINDINGS: Underlying the palpable marker in the upper central LEFT chest wall is a well-defined oil cyst. Underlying the palpable marker in the upper central RIGHT chest wall is a well-defined oil cyst. ULTRASOUND FINDINGS: Targeted ultrasound of the palpable abnormality in the upper RIGHT chest wall at approximately 1:00 demonstrates an oil cyst. Targeted ultrasound of the palpable abnormality in the upper LEFT chest wall at approximately 11:00 demonstrates an additional oil cyst. Targeted physical exam by Dr. Banuelos demonstrates corresponding palpable masses consistent with oil cysts. IMPRESSION: 1. Bilateral palpable upper chest wall abnormalities correspond to benign oil cysts. OVERALL FINAL ASSESSMENT: BI-RADS Category 2: Benign. RECOMMENDATION: Continued clinical follow-up is recommended. Dictated by: Chase Banuelos M.D. The radiology attending physician has personally reviewed this study, and had reviewed and/or edited this written report and agrees with it. Electronically signed by: Sarahi Irvin M.D. Ning Burgess NP IMG MAMMO PROCEDURES Final Result from Last 3 Months or Most Recently Relevant to Health Maintenance Insurance [facility] HMO/PPO Address: [facility] [address] [place] [address] [facility] Advance Directives For more information, please contact: [phone] * Full Code (Latest Code Status on File) Date Activated Date Inactivated Comments 11/26/2020 5:19 PM 11/29/2020 6:49 PM * Full Code Date Activated Date Inactivated Comments 11/26/2020 5:19 PM 11/26/2020 5:19 PM * Full Code Date Activated Date Inactivated Comments 08/06/2020 6:57 PM 08/08/2020 6:59 PM Care Teams Commercial Property Manager Relationship Specialty Start Date End Date Margaret Christianson DO [address] [facility] [address] [address] PCP - General Family Medicine 01/01/24 Deny Lopez NP [address] [facility] [address] [place] [address] Nurse Practitioner Oncology 01/04/24 Amanda Alvarado MD [address] [facility] [address] [place] [address] Referring Physician Pain Management 01/04/24 Nahomy Funez, PhD [address] [place] [address] [phone] Referring Physician Obstetrics and Gynecology 01/04/24
--- OUTSIDE RECORDS SUMMARY | 2025-04-04 02:18 | XMS_ITS | Clinical Summary ---
Author Organization [facility] Address [address] [place] [address] Phone Care Team Providers Care Nurse Supervisor Name Role Phone Unavailable Primary Care Provider Unavailabl e Allergies Active Allergy Reactions Criticality Noted Date Comments Penicillins Rash Low 04/23/2024 Medications esomeprazole (NexIUM) 20 mg Capsule, Delayed Release(E.C.) Take 20 mg by mouth daily before breakfast. Active gabapentin (NEURONTIN) 100 mg capsule Take 200 mg by mouth daily. Active lisinopriL (PRINIVIL) 2.5 mg tablet Take 2.5 mg by mouth daily. Active cholecalcifero l 1,250 mcg (50,000 unit) Capsule Take by mouth every 7 days. Active multivitamin (DAILY-KATELYN) tablet Take 1 Tablet by mouth daily. Active mv,addy,iron,mn /folic acid/chol (DLQR-FFVU-TZD LS, PABA, ORAL) Take by mouth. Activ e ibuprofen (MOTRIN) 400 mg tablet Take 400 mg by mouth every 6 hours as needed for Pain, Mild. Active Ethinyl Estradiol-Nore lgestrom (Xulane) 150-35 mcg/24 hr Patch Weekly PATCH Apply 1 Patch to skin as directed see administration instructions. Active oxyCODONE (ROXICODONE) 5 mg tablet Take 1 Tablet (5 mg) by mouth every 4 - 6 hours as needed for pain. Max Daily Amount: 30 mg 27 Tablet 06/06/2024 12:15 PM PERL SOFTWARE ENGINEER Active Encounters Date Type Department Care Team Description 03/25/2025 External Device Data [facility] ABSTRACTION Provider, Abstract 02/25/2025 External Device Data [facility] ABSTRACTION Provider, Abstract 02/19/2025 External Device Data [facility] ABSTRACTION Provider, Abstract 02/18/2025 External Device Data [facility] ABSTRACTION Provider, Abstract 02/11/2025 External Device Data [facility] ABSTRACTION Provider, Abstract from Last 3 Months Social History Tobacco Use Types Packs/Day Years Used Date Smoking Tobacco: Never Smokeless Tobacco: Never Tobacco Cessation:Counseling Given: Not Answered Alcohol Use Standard Drinks/Week Comments Not Currently 0 (1 standard drink = 0.6 oz pur e alcohol) Feeling Safe Answer Date Recorded Are you in a relationship wi th someone who hurts you emotionally and/or physically? No 06/05/2024 Food Insecurity Answer Date Recorded Patient needs follow up regardin 08/15/2024 Transportation Needs Answer Date Record ed Patient needs follow up regardin 08/15/2024 Housing Stability Answer Date Recorded Social/Environmental Concerns No concerns Utility Needs Answer Date Recorded Patient needs follow up regardin 08/15/2024 Comments No Sex and Gender Information Value Date Recorded Sex Assigned at Not on file Legal Sex Female 12:57 PM PERL SOFTWARE ENGINEER Gender Identity Not on file Sexual Orientation Not on file Last Filed Vital Signs Vital Sign Reading Time Taken Comments Blood Pressure 120/56 06/06/2024 3:25 AM PERL SOFTWARE ENGINEER Pulse 72 06/06/2024 3:25 AM PERL SOFTWARE ENGINEER Temperature 36.8 C (98.2 F) 06/06/2024 3:25 AM PERL SOFTWARE ENGINEER Respiratory Rate 12 06/06/2024 3:25 AM PERL SOFTWARE ENGINEER Oxygen Saturation 98% 06/06/2024 3:25 AM PERL SOFTWARE ENGINEER Inhaled Oxygen Concentration - - Weight 88.8 kg (195 lb 12.8 oz) 025 10:41 AM PERL SOFTWARE ENGINEER Height 172.7 cm (5' 8) 06/05/2024 10:4 1 AM PERL SOFTWARE ENGINEER Body Mass Index 29.77 06/05/2024 10:41 AM PERL SOFTWARE ENGINEER Plan of Treatment Health Maintenance Due Date Last Done Comments Pre-Diabetes and Diabetes Screening 1980 HEPATITIS B VACCINES (1 of 3 - 19+ 3-dose series) 12/23 INFLUENZA VACCINE (#1) 2024 COLORECTAL SCREENING 01/09/2025 Colorectal Cancer Screening 01/09/2025 FIT-DNA Q 3 years 01/09/2025 FIT/FOBT Q 1 year 01/09/2025 Flex Sig/CT Colonography Q 5 years 01/09/2025 DTAP/TDAP/TD VACCINES (2 - Td or Tdap) 02/07/2034 HPV VACCINES (No Doses Required) Completed Medical Devices Implanted Type Area Rn Clinical Research Device Identifier Shelf Expiration Date Model / Serial / Lot Allograft Fascia Julieth 1x14cm Vnew [id number] - [id number] Implanted:Qty: 1 on 06/05/2024 by Felix Cohn MD at [facility] Tissue N/A: Vagina [employer] 10/18/2028 [id number] / [id number] / Insurance [address] [address] [place] [address] RX [employer] RX Member Subscriber Plan / Payer (Ef fective 2024-Present) Name:Beronica Linn Relation to Subscriber:Self Name:Beronica Linn Subscriber ID:Not on file Payer ID:Not on file Group ID:[id number] Type:RX Commercial Address: [place] Advance Directives For more information, please contact: [phone] * Full Code (Latest Code Status on File) Date Activated Date Inactivated Comments 06/05/2024 8:39 PM 06/06/2024 2:28 PM * Full Code Date Activated Date Inactivated Comments 06/05/2024 12:32 PM 06/05/2024 8:39 PM
--- OUTSIDE RECORDS SUMMARY | 2025-04-04 02:18 | XMS_ITS | Clinical Summary ---
Author Organization [facility] Address [address] [place] [address] Care Team Providers Care [employer] Gun Hand Name Role Phone Margaret Christianson DO Primary Care Provider Source Comments [facility],non-owned Affiliates and Associated Physician Practices is amultiple site organization consisting of ambulatory clinics and hospital sitesin [place], [place], [place] and [place]. This disclosure is being madepursuant to the Care Everywhere program and may not contain all information available regarding this patient. Last updated 18.[facility] Allergies Active Allergy Reactions Criticality Noted Date Comments Penicillins Rash Medium 05/20/2020 Medications * Be aware that medications may not be up to date on this document. Alwaysverify current medications with the patient. vitamin D, ergocalciferol, (DRISDOL) 1.25 MG (00617 UT) capsule Take 1 (one) capsule by mouth 10/24/2020 Active XULANE 150-35 MCG/24HR patch 1 (one) patch 01/06/2021 Active Fexofenadine HCl (PITO PO) Active BinaxNOW COVID-19 Ag Home Test KIT Use as Directed on the Package 11/11/2021 Active nystatin/triamc inolone (Mycolog) 751177-4.1 UNIT/GM-% ointmentIndicat ions:Lichen sclerosus Use to vulvar skin 1-2 times a week. 30 g 2 08/02/2023 Active gabapentin (Neurontin) 100 MG capsuleIndicati ons:Vulvar burning Take 2 (two) capsules by mouth at bedtime 180 capsule 3 01/25/2024 Active cetirizine (ZyrTEC ALLERGY) 10 MG gel capsule Take 1 (one) capsule by mouth once daily Active esomeprazole (NexIUM) 20 MG capsule Take 1 (one) capsule by mouth once daily Active estradiol (Estrace) 0.1 MG/GM vaginal cream 06/14/2024 Active ibuprofen (Motrin) 400 MG tablet Take 1 (one) tablet by mouth every 6 hours as needed Active lisinopril (Prinivil; Zestril) 2.5 MG tablet Take 1 (one) tablet by mouth once daily 05/23/2024 05/23/19 26 Active nitrofurantoin monohyd macro crystals (Macrobid) 100 MG capsule TAKE 1 CAPSULE BY MOUTH EVERY 12 HOURS WITH FOOD. TO BEGIN AFTER SURGERY 05/28/2024 Active PARoxetine (Paxil) 10 MG tablet Active Cholecalciferol 1.25 MG (11421 UT) Take by mouth every 7 days (once a week) Active Active Problems Problem Noted Date Diagnosed Date History of radical hysterectomy 01/16/2025 Bilateral hand numbness 12/19/2024 Prediabetes 12/19/2024 Dysphagia 02/15/2024 Uterine leiomyoma 02/12/2024 Chronic constipation 01/04/2024 Overview (01/25/2024): Last Assessment & Plan: Okay to take MiraLax on a daily basis if needed. Increase fiber in daily diet. Increase water intake. Elevated blood pressure read ing in office without diagnosis of hypertension 01/04/2024 Overview (01/25/2024): Last Assessment & Plan: Monitor home blood pressure readings. Blood pressure goal is less than 140/90. Send blood pressure readings to our office, via [employer], on a weekly basis. Blood pressure goal is less than 140/90. Low-sodium diet recommended. Class 1 obesity due to exces s calories without serious comorbidity with body mass index (BMI) of 30.0 to 30.9 in adult 01/04/2024 Primary hypertension 01/04/2024 Abdominal pain 06/03/2021 Overview (01/25/2024): Last Assessment & Plan: Ordered CT scan of abdomen pelvis due to her history of left breast cancer, and current complaint of abdominal bloating and pain. Will follow. Female infertility 06/03/2021 Gastroesophageal reflux disease with esophagitis 06/03/2021 Recurrent loss without current pregnan cy 06/03/2021 H/O low back pain 06/03/2021 Acquired absence of both breasts 02/24/2021 Malignant neoplasm of left female breast 021 Overview (01/28/2021): Added automatically from request for surgery [id number] Resolved Problems Problem Noted Date Diagnosed Date Resolved Date Hypothyroidism 06/03/2021 01/26/2023 Encounters Date Type Department Care Team Description 01/16/2025 2:00 PM CDT Office Visit [facility] - COMBAT SYSTEMS OPERATOR [address] [place] [phone] Nahomy Funez APRN-ZEFERINO Vulvar burning (Primary Dx); Lichen sclerosus 01/16/2025 Travel from Last 3 Months Family History Medical History Relation Name Comments Hypertension Brother Diabetes; unknown type Father Hyperlipidemia Father Hypertension Father Heart Failure Maternal Grandfather CVA Maternal Grandmother Hypertension Maternal Grandmother Osteoporosis Maternal Grandmother Cancer - Lung Mother Hypertension Mother COPD - Chronic Obstructive Pulmonary Disease Paternal Grandfather DVT - Deep Vein Thrombosis Paternal Grandmother Hyperlipidemia Paternal Grandmother Diabetes; unknown type Sister Hypertension Sister Relation Name Status Comments Brother Alive Father Alive Maternal Grandfather Maternal Grandmother Mother Alive Paternal Grandfather Paternal Grandmother Sister Alive Social History Tobacco Use Types Packs/Day Years Used Date Smoking Tobacco: Never Smokeless Tobacco: Never Tobacco Cessation:Counseling Given: Not Answered Alcohol Use Standard Drinks/Week Comments Yes 0 (1 standard drink = 0.6 oz pur e alcohol) PHQ-2 Answer Date Recorded Patient Health Questionnaire-2 Score 0 01/16/2025 Comments No Sex and Gender Information Value Date Recorded Sex Assigned at Not on file Legal Sex Female 3:20 PM CDT Gender Identity Not on file Sexual Orientation Not on file Last Filed Vital Signs Vital Sign Reading Time Taken Comments Blood Pressure 122/78 01/16/2025 1:53 PM CDT Pulse - - Temperature - - Respiratory Rate - - Oxygen Saturation - - Inhaled Oxygen Concentration - - Weight 90.3 kg (199 lb) 01/16/2025 1:53 PM CDT Height 172.7 cm (5' 8) 01/16/2025 1:53 PM CDT Body Mass Index 30.26 01/16/2025 1:53 PM CDT Plan of Treatment Upcoming Encounters Date Type Department Care Team (Late st Contact Info) Description 01/15/2026 2:00 PM CDT Office Visit [facility] - COMBAT SYSTEMS OPERATOR [address] [place] [address] Nahomy Funez APRN-PIT LABORER [address] [place] [address] Health Maintenance Due Date Last Done Comments COLOGUARD (AGES 45-75) - COL ON CA SCREENING 1980 COLON MONITORING 1980 COLONOSCOPY - COLON CA SCREENING 1980 CT COLONOGRAPHY - COLON CA SCREENING 1980 Colorectal Cancer Screening 1980 FIT - COLON CA SCREENING 1980 FLEX SIG - COLON CA SCREENING 1980 LIPID TESTING 1980 HIV SCREENING 01/09/1995 HEPATITIS C SCREENING 01/05/1998 DTAP/TDAP/TD VACCINES (1 - Tdap) 01/09/1999 HEPATITIS B VACCINE (1 of 3 - 19+ 3-dose series) 01/09/1999 HPV VACCINE (1 - 3-dose SCDM series) 01/09/2007 SCREENING FOR DIABETES 01/26/2023 MAMMOGRAM 10/18/2024 10/18/2022 COVID-19 VACCINE (1 - 2024-2 6 season) 2024 INFLUENZA VACCINE (#1) 2024 ZOSTER VACCINE (1 of 2) 01/09/2030 DEPRESSION SCREENING Completed 01/16/2025, 08/02/2023, 01/26/2023 HIB VACCINE Aged Out No longer eligi ble based on patient's age to complete this topic MENINGOCOCCAL (Group B) VACCINE SHARED DECISION-MAKING Aged Out No longer eligible based on patient's age to complete this topic MENINGOCOCCAL GROUPS A/C/Y/W VACCINE Aged Out No longer eligible b ased on patient's age to complete this topic PNEUMOCOCCAL VACCINE Aged Out No long er eligible based on patient's age to complete this topic Insurance [facility] Care Teams Fib[employer]lass Gun Hand Relationship Specialty Start Date End Date Margaret Christianson DO [address] [place] [address] [address] [place] [address] PCP - General Family Medicine 01/25/24
--- OUTSIDE RECORDS SUMMARY | 2025-04-04 02:18 | XMS_ITS | Clinical Summary ---
Author Organization [facility] [employer] [facility] Address [address] [place] [address] Care Team Providers Care [facility] Name Role Phone Unavailable Primary Care Provider Unavailabl e Social History Tobacco Use Types Packs/Day Years Used Date Smoking Tobacco: Never Assessed Comments Unknown Sex and Gender Information Value Date Recorded Sex Assigned at Not on file Legal Sex Female 3:57 PM EST Gender Identity Not on file Sexual Orientation Not on file Plan of Treatment Not on file Medical Devices Not on file
--- OUTSIDE RECORDS SUMMARY | 2025-04-04 02:18 | XMS_ITS | Patient Health Record ---
Author Organization [facility] Address [address] [place] [address] Care Team Providers Care Tannery Gummer Name Role Phone Amanda Alvarado Unavailable [phone] Allergies Allergen (clinical drug ingredient) Drug/Non Drug Allergy documented on EMR Reaction Allergy Type Onset Date Status Penicillin Unknown Drug Allergy Active Reason For Referral No Information Medications Medication SIG (Take, Route, Frequency, Duration) Notes Start Date End Date Status Venlafaxine HCl 75 MG 1 tablet with food Orally Once a day Active Lisinopril 2.5 MG 1 tablet Orally Once a day Active Nystatin-Triamcinolone 471168-6.1 UNIT/GM APPLY TO VULVAR SKIN ONE TO TWO TIMES PER WEEK External; Duration: 30 Days Active Gabapentin 100 MG Oral; Duration: 90 Days Active Problems Problem Type SNOMED Code ICD Code Onset Dates Problem Status W/U Status Risk Notes Problem Spinal enthesopathy (09371638) Spinal enthesopathy, lumbar region (M46.06) Active confirmed Problem Breast cancer (821409868) Breast cancer (C50.919) Active confirmed ICD F32.A-De pression : Problem Hypertension (70949523) Hypertension (I10) Active confirmed Vital Signs Heart Rate 75 /min 02/20/2025 Height-cm 172.72 cm 02/20/2025 Blood pressure diastolic 71 mm Hg 02/20/2025 Weight-kg 86.18 kg 02/20/2025 Height 5ft8in in 02/20/2025 Blood pressure systolic 126 mm Hg 02/20/2025 Weight 190 lbs 02/20/2025 BMI 28.89 kg/m2 02/20/2025 Encounters Encounter Location Date Provider Diagnosis [facility] [address] [place] [address] 07/30/2024 Amanda Alvarado Breast cancer C50.91 9 ; Hypertension I10 ; Shoulder enthesopathy M77.8 ; Enthesopathy of hip region M76.899 ; History of breast cancer Z85.3 and Hypermobility syndrome M35.7 [facility] [address] [place] [address] 02/20/2025 Amanda Alvarado Breast cancer C50.91 9 ; Hypertension I10 and Spinal enthesopathy, lumbar region M46.06 Assessments Encounter Date Diagnosis (ICD Code) Assessment Notes Treatment Notes Treatment Clinical Notes Section Notes 07/30/2024 Breast cancer (ICD-10 - C50.919) 02/20/2025 Breast cancer (ICD-10 - C50.919) 02/20/2025 Hypertension (ICD-10 - I10) High Blood Pressure: Care Instructions material was published, Learning About High Blood Pressure material was published 02/20/2025 Spinal enthesopathy, lumbar region (ICD-10 - M46.06) 07/30/2024 Hypertension (ICD-10 - I10) 07/30/2024 Shoulder enthesopathy (ICD-10 - M77.8) 07/30/2024 Enthesopathy of hip region (ICD-10 - M76.899) 07/30/2024 History of breast cancer (ICD-10 - Z85.3) 07/30/2024 Hypermobility syndrome (ICD-10 - M35.7) 07/30/2024 Other Body Mass Index : Care Instructions material was published Plan Of Treatment No Information Insurance Providers Payer Name Payer Address Payer Phone Subscriber Number Group Number Insured Name Patient Relationship to Insured Coverage Start Date Coverage End Date [facility] [address] [address] [place] [address] [phone] [id number] Beronica Linn Self - patient is the insured
[2025-04-04 09:20] VITALS: BP 143/91; PULSE 78; RESP 20; TEMP 36.4; O2SAT 100; BMI 29.6
[2025-04-04] MEDS: LACTATED RINGERS 1,000 ML 150 ML IV CONT (09:23)
--- NOTE | 2025-04-04 09:40 | WPDANESEPPF ---
Anes - Initial Pre Proc Eval Procedure: Operation Date: 04/04/25 10:30 Proposed Procedures p EGD & Screening Colonoscopy - Zeferino Cruz MD Date/Time: 04/04/25 09:40 Surgeon: Zeferino Cruz MD Pre Op Diagnosis: Screening Patient Data Age: 45 Gender: F Height: 1.73 m Weight: 88.5 kg Last Vital Signs Temp 36.4 C 04/04/25 09:20 Pulse 78 04/04/25 09:20 Resp 20 04/04/25 09:20 BP 143/91 H 04/04/25 09:20 Pulse Ox 100 04/04/25 09:20 O2 Del Method Room Air 04/04/25 09:20 Allergies Allergy/AdvReac Type Severity Reaction Status Date / Time amoxicillin Allergy Unknown RASH Verified 04/04/25 09:17 Home Medications ?Medication ?Instructions ?Recorded ?Confirmed ?Type cholecalciferol (vitamin D3) 50 50 mcg PO WEEKLY 04/09/19 04/04/25 History mcg (2,000 unit) capsule multivitamin 1 tablet PO DAILY 04/09/19 04/04/25 History ibuprofen 600 mg tablet 600 mg PO Q6H PRN Pain 02/05/20 04/04/25 History gabapentin 100 mg capsule 200 mg PO DAILY 08/05/21 04/04/25 History Zfjh-Lmww-Qjfy(vit A,C-biotin) 1 tablet BYMOUTH DAILY 03/13/25 04/04/25 History calcium citrate 200 mg PO BID 03/13/25 04/04/25 History esomeprazole magnesium 20 mg 20 mg PO DAILY 03/13/25 04/04/25 History capsule,delayed release (Nexium) estradiol 10 mcg vaginal insert 10 mcg vaginal 2XW 03/13/25 04/04/25 History (Imvexxy Maintenance Pack) levocetirizine 5 mg tablet (24HR 5 mg PO DAILY 03/13/25 04/04/25 History Allergy Relief) lisinopril 2.5 mg tablet 2.5 mg PO DAILY 03/13/25 04/04/25 History venlafaxine 75 mg capsule,extended 75 mg PO DAILY 03/13/25 04/04/25 History release 24 hr Patient hx anesthesia problems: none Family hx anesthesia problems: none Results Review: All pre-operative results and documents have been reviewed as part of the pre-operative evaluation. [facility] Past Medical History Medical History Spontaneous x 4 (normal spontaneous vaginal delivery) x 2 Anemia MTHFR (methylene THF reductase) deficiency and homocystinuria Thyroid disease Surgical History Surgical History History of reconstruction of right breast History of reconstruction of left breast History of mastectomy, subtotal History of gynecologic surgery s/p hysteroscopy, myomectomy, and endometrial ablation 2017 H/O tubal ligation History of foot surgery History of appendectomy Family History Family History Mother Lung cancer Grandparent Lung cancer Paternal Alcoholism Paternal Cerebrovascular accident Paternal and Maternal Hypertension Maternal Heart disease Maternal Father Diabetes mellitus Sibling Diabetes mellitus Hypertension Thyroid disease Social History Social History Smoking status: Never smoker Alcohol intake: current Alcohol use details: occasional Substance use: never Substance use type: does not use Living arrangements: with family Additional living arrangements comments: spouse, daughter, and son Occupation/Education: occupation Additional occupation/education comments: [employer] Gender identity (if verbalized by the patient): Female Spiritual care concerns: No Agree to blood products: Yes Anes - Eval Final PreProcedure Day of Procedure 04/04/25 09:40 Patient weight: overweight Heart: regular rate and rhythm Lungs: clear to auscultation Airway: Mallampati scale class II Neurological: alert and oriented Last oral intake: >/= 8 hours ASA classification: III Emergent: no Anesthetic plan: proceed Anesthesia type and monitoring: general GIVS and standard monitoring Results Review: All pre-operative results and documents have been reviewed as part of the pre-operative evaluation. Informed Consent: The patient's anesthetic plan and its attendant risks and benefits were discussed with the patient/family/POA. Questions were solicited and answers provided to the satisfaction of the patient/family/POA.
--- NOTE | 2025-04-04 10:35 | PM.HPGS ---
History of Present Illness History of Present Illness Consent: Risks, benefits, and alternatives have been discussed and questions answered. Patient agrees to proceed with procedure. Chief complaint: Screening Narrative: Beronica Linn is a 45 year old female here for first egd and colonoscopy, h/o gerd on ppi Review of Systems Review of Systems: All systems reviewed & are unremarkable except as noted in HPI and below PMFSH Past Medical History Medical History (Updated 04/04/25 @ 10:36 by Zeferino Cruz MD) Colon cancer screening GERD (gastroesophageal reflux disease) Spontaneous x 4 (normal spontaneous vaginal delivery) x 2 Anemia MTHFR (methylene THF reductase) deficiency and homocystinuria Thyroid disease Surgical History Surgical History History of reconstruction of right breast History of reconstruction of left breast History of mastectomy, subtotal History of gynecologic surgery s/p hysteroscopy, myomectomy, and endometrial ablation 2017 H/O tubal ligation History of foot surgery History of appendectomy Family History Family History Mother Lung cancer Grandparent Lung cancer Paternal Alcoholism Paternal Cerebrovascular accident Paternal and Maternal Hypertension Maternal Heart disease Maternal Father Diabetes mellitus Sibling Diabetes mellitus Hypertension Thyroid disease Social History Social History Smoking status: Never smoker Alcohol intake: current Alcohol use details: occasional Substance use: never Substance use type: does not use Living arrangements: with family Additional living arrangements comments: spouse, daughter, and son Occupation/Education: occupation Additional occupation/education comments: [employer] Gender identity (if verbalized by the patient): Female Spiritual care concerns: No Agree to blood products: Yes Meds Home Medications and Allergies Home Medications ?Medication ?Instructions ?Recorded ?Confirmed ?Type cholecalciferol (vitamin D3) 50 50 mcg PO WEEKLY 04/09/19 04/04/25 History mcg (2,000 unit) capsule multivitamin 1 tablet PO DAILY 04/09/19 04/04/25 History ibuprofen 600 mg tablet 600 mg PO Q6H PRN Pain 02/05/20 04/04/25 History gabapentin 100 mg capsule 200 mg PO DAILY 08/05/21 04/04/25 History Wdhd-Uxin-Tumr(vit A,C-biotin) 1 tablet BYMOUTH DAILY 03/13/25 04/04/25 History calcium citrate 200 mg PO BID 03/13/25 04/04/25 History esomeprazole magnesium 20 mg 20 mg PO DAILY 03/13/25 04/04/25 History capsule,delayed release (Nexium) estradiol 10 mcg vaginal insert 10 mcg vaginal 2XW 03/13/25 04/04/25 History (Imvexxy Maintenance Pack) levocetirizine 5 mg tablet (24HR 5 mg PO DAILY 03/13/25 04/04/25 History Allergy Relief) lisinopril 2.5 mg tablet 2.5 mg PO DAILY 03/13/25 04/04/25 History venlafaxine 75 mg capsule,extended 75 mg PO DAILY 03/13/25 04/04/25 History release 24 hr Allergies Allergy/AdvReac Type Severity Reaction Status Date / Time amoxicillin Allergy Unknown RASH Verified 04/04/25 09:17 Vital Signs Vital Signs - 24 hr 04/04/25 09:20 Temperature 97.6 F Pulse Rate 78 Respiratory Rate 20 Blood Pressure 143/91 H Pulse Oximetry 100 Oxygen Delivery Room Air Exam Const: General: comfortable and no acute distress HENMT: Face/Nose/Sinus: Normal nares present Eyes: General: appearance normal, both eyes and all related structures Neck: Neck: no JVD Resp: Auscultation: clear to auscultation bilaterally Cardio: Rate: regular rate Rhythm: regular rhythm GI: Inspection: non-distended GI Palp: Yes Soft to palpation Skin: General skin exam: normal color Extrem: General: normal to inspection Psych: Mental Status: mental status grossly normal Assessment and Plan Assessment and plan (1) GERD (gastroesophageal reflux disease): Code(s): K21.9 - Gastro-esophageal reflux disease without esophagitis Status: Acute Assessment and Plan: egd (2) Colon cancer screening: Code(s): Z12.11 - Encounter for screening for malignant neoplasm of colon Status: Acute Assessment and Plan: colonoscopy
--- NOTE | 2025-04-04 10:53 | S_PTH ---
PATIENT: Beronica Linn LOC: [facility]#:[id number] AGE/SX: 45/F ROOM: RE04/04/[address]: Zeferino Cruz MD : [id number] BED: DIS: 04/04/2025 SPEC #: [id number] RECD: 04/04/25 11:36 STATUS: ILIA REQ #: [id number] AMMY: 04/04/25 10:[address]: Zeferino Cruz DEPT: [facility] Surgical RECD BY: Elaina Dacosta ENTERED: 04/04/25 11:37 SP TYPE: Surgical OTHR DR: Margaret Christianson, DO Tissues: A - Gastric Biopsy Procedures: Hematoxylin and Eosin Stain Gross and Microscopic Level 4
--- NOTE | 2025-04-04 10:55 | SUR.OPER ---
EGD ended at 1050. Colonoscopy started at 1055.
[2025-04-04 11:11] VITALS: BP 115/47; PULSE 74; RESP 12; O2SAT 100
[2025-04-04 11:21] VITALS: BP 111/53; PULSE 69; RESP 13; O2SAT 100
[2025-04-04 11:31] VITALS: BP 123/60; PULSE 62; RESP 13; O2SAT 100
== END 2025-04-04 11:42 | disposition home or self-care (01) ==
PROVIDERS: PCP Family Medicine; Visit Provider Internal Medicine Gastroenterology
PROC: 0DJ08ZZ Inspection of Upper Intestinal Tract, Via Natural or Artificial Opening Endoscopic (ICD-10-PCS; CPT 45378; principal; 2025-04-04 10:30)
DX: Z12.11 Encounter for screening for malignant neoplasm of colon (principal); K21.9 Gastro-esophageal reflux disease without esophagitis; K64.8 Other hemorrhoids; K57.30 Diverticulosis of large intestine without perforation or abscess without bleeding; D64.9 Anemia, unspecified; E07.9 Disorder of thyroid, unspecified; E72.12 Methylenetetrahydrofolate reductase deficiency; Z79.1 Long term (current) use of non-steroidal anti-inflammatories (NSAID); Z98.890 Other specified postprocedural states; Z98.51 Tubal ligation status; Z80.1 Family history of malignant neoplasm of trachea, bronchus and lung; Z82.49 Family history of ischemic heart disease and other diseases of the circulatory system
CPT/HCPCS: 43239; 45378; 88305; J2003; J2704; J7120